=== PATIENT | female | born 1950 | race African-American/Black ===

== ENCOUNTER 2018-05-27 20:01 | Inpatient (IN) ==
[2018-05-27] MEDS ORDERED: CLINDAMYCIN INJ 600 MG in PREMIX 1 EACH IV STA (20:48)
[2018-05-27] MEDS ORDERED: SODIUM CHLORIDE 0.9% 500 ML IV STA (20:48)
[2018-05-27] MEDS ORDERED: methylPREDNISolone SOD SUC 125 MG/2 ML VIAL IV STA (20:48)
[2018-05-27] MEDS ORDERED: PIPERACILLIN/TAZOBACTAM 3,375 MG in SODIUM CHLORIDE 0.9% 100 ML IV STA (20:48)
[2018-05-27] MEDS ORDERED: ONDANSETRON 4 MG/2 ML VIAL IV STA (20:48)
[2018-05-27] MEDS ORDERED: ALBUTEROL NEB SOLN 5 MG/ML 20 ML/BOTTLE RESP TX SCH (21:00)
[2018-05-27 21:50] LABS: PT Patient Result 10.4 SECS
[2018-05-27 22:03] LABS: Lactic Acid 2.5 MMOL/L (0.4-2.0)
[2018-05-27 22:32] LABS: Basophils # 0.1 10*3/uL (0.0-0.2); Basophils % 0.3 % (0.0-0.8); Eosinophils % 0.1 % (0.00-10.9); Hematocrit 43.9 VOL% (35.7-47.0); Hemoglobin 13.3 GM/DL (12.0-16.0); Immature Granulocytes Absolute 0.17 #; Lymphocytes # 2.5 10*3/uL (1.4-4.0); Lymphocytes % 14.9 % (21.3-54.2); Mean Corpuscular HGB Conc 30.3 GM/DL (32-36); Mean Corpuscular Hemoglobin 27 PG (27-34); Mean Corpuscular Volume 87.5 FL (87-102); Mean Platelet Volume 11.6 FL (9.6-12.0); Monocytes # 1.3 10*3/uL (0.11-0.8); Monocytes % 7.4 % (1.7-12.7); NRBC # 0.06 10*3/uL; Neutrophils # 13.1 10*3/uL (1.4-7.4); Neutrophils % 76.3 % (38.7-73.9); Platelet Count 290 T/CUMM (130-400); Red Blood Count 5.02 MC/CUMM (3.8-5.5); Red Cell Distribution Width 16.3 % (9.3-17.3); White Blood Count 17.1 T/CUMM (4-12)
[2018-05-27 22:37] LABS: Albumin 2.5 G/DL (3.4-5.0); Bilirubin,Total 0.6 MG/DL (0.2-1.0); Calcium 9.3 MG/DL (8.5-10.1); Osmolality,Calculated 298.4 MOS/KG (273-304); Total Protein 8.7 G/DL (6.4-8.3)
[2018-05-27 23:15] LABS: Apearance,Urine CLEAR (Clear); Bilirubin,Urine Negative (Negative); Blood, Urine Negative (Negative); Glucose,Urine (UA) Negative (Negative); Ketones,Urine Negative (Negative); Nitrite,Urine Negative (Negative); Protein,Urine 30 MG/DL; RBC,Urine 3 /HPF (0-4); Urine Color Amber (Yellow); Urine Specific Gravity 1.027 (1.001-1.035); WBC,Urine 2 /HPF (0-6)
[2018-05-28 00:58] LABS: PT Patient Result 10.7 SECS; Partial Thromboplastin Time 21.7 SECS (0-40)
[2018-05-28] MEDS ORDERED: ONDANSETRON 4 MG/2 ML VIAL IV PRN (01:55)
[2018-05-28] MEDS ORDERED: PIPERACILLIN/TAZOBACTAM 3,375 MG VIAL IV ONE (02:57)
[2018-05-28] MEDS ORDERED: SODIUM CHLORIDE 0.9% 100 ML IV ONE (02:58)
[2018-05-28] MEDS: SODIUM CHLORIDE 0.45% 1,000 ML IV SCH ×2 (04:00→11:30)
[2018-05-28] MEDS: ALBUTEROL/IPRATROPIUM 3 ML NEB RESP TX SCH ×3 (08:05→19:50)
[2018-05-28 10:09] LABS: Albumin 1.9 G/DL (3.4-5.0); Bilirubin,Total 0.6 MG/DL (0.2-1.0); Calcium 8.4 MG/DL (8.5-10.1); Osmolality,Calculated 300.1 MOS/KG (273-304); Potassium 4.3 MMOL/L (3.5-5.1); Total Protein 7.4 G/DL (6.4-8.3)
[2018-05-28 10:15] LABS: Basophils % 0.2 % (0.0-0.8); Eosinophils % 0.1 % (0.00-10.9); Hematocrit 40.1 VOL% (35.7-47.0); Hemoglobin 11.8 GM/DL (12.0-16.0); Immature Granulocytes % 0.8 %; Immature Granulocytes Absolute 0.12 #; Lymphocytes # 2.2 10*3/uL (1.4-4.0); Lymphocytes % 14.8 % (21.3-54.2); Mean Corpuscular HGB Conc 29.4 GM/DL (32-36); Mean Corpuscular Hemoglobin 26 PG (27-34); Mean Corpuscular Volume 89.5 FL (87-102); Mean Platelet Volume 12.2 FL (9.6-12.0); Monocytes # 0.9 10*3/uL (0.11-0.8); Monocytes % 6.2 % (1.7-12.7); NRBC # 0.05 10*3/uL; Neutrophils # 11.4 10*3/uL (1.4-7.4); Neutrophils % 77.9 % (38.7-73.9); Platelet Count 182 T/CUMM (130-400); Red Blood Count 4.48 MC/CUMM (3.8-5.5); Red Cell Distribution Width 16.2 % (9.3-17.3); White Blood Count 14.6 T/CUMM (4-12)
[2018-05-28 11:17] LABS: Anisocytosis 1+; Macrocytosis 1+; Platelet Estimate Normal
[2018-05-28] MEDS: ENOXAPARIN 40 MG/0.4 ML SYRINGE SUBCUT SCH (11:30)
[2018-05-28] MEDS: PIPERACILLIN/TAZOBACTAM 3,375 MG in SODIUM CHLORIDE 0.9% 100 ML IV SCH ×2 (11:31→18:31)
[2018-05-28] MEDS ORDERED: MAGNESIUM HYDROXIDE SUSP 30 ML UDCUP PO ONE (12:13)
[2018-05-28] MEDS ORDERED: DEXTROSE 50% 25 GM/50 ML SYRINGE IV PRN (12:28)
[2018-05-28] MEDS ORDERED: GLUCAGON 1 MG VIAL IM PRN (12:28)
[2018-05-28] MEDS: ZINC SULFATE 220 MG CAPSULE PO SCH (12:48)
[2018-05-28] MEDS: methylPREDNISolone SOD SUC 40 MG/1 ML VIAL IV SCH ×2 (12:48→22:14)
[2018-05-28] MEDS: ASCORBIC ACID 500 MG TABLET PO SCH ×2 (12:48→22:12)
[2018-05-28] MEDS: METOCLOPRAMIDE 10 MG/10 ML UDCUP PO SCH ×2 (12:49→17:45)
[2018-05-28] MEDS: MULTIVITAMIN (BEROCCA) TABLET PO SCH (12:50)
[2018-05-28] MEDS: POLYETHYLENE GLYCOL POWDER 17 GM PACK PEG SCH (12:50)
[2018-05-28] MEDS: levETIRAcetam LIQUID 100 MG/ML 30 ML/BOTTLE PEG SCH ×3 (12:51→22:14)
[2018-05-28] MEDS: INSULIN REGULAR 100 UNIT/ML SUBCUT SCH (17:29)
[2018-05-28] MEDS: DONEPEZIL 10 MG TABLET PEG SCH (22:12)
[2018-05-28] MEDS: BRIMONIDINE/TIMOLOL OPH SOLN 5 ML BOTTLE BOTH EYES SCH (22:13)
[2018-05-28] MEDS: PHENYTOIN 100 MG/4 ML UDCUP PEG SCH (22:13)
[2018-05-28] MEDS: MEMANTINE 10 MG TABLET PER TUBE SCH (22:14)
[2018-05-28] MEDS: TRAVOPROST 0.004% OPH SOLN 2.5 ML BOTTLE BOTH EYES SCH (22:15)
[2018-05-29] MEDS: ALBUTEROL/IPRATROPIUM 3 ML NEB RESP TX SCH ×4 (00:01→20:21)
[2018-05-29] MEDS: METOCLOPRAMIDE 10 MG/10 ML UDCUP PO SCH ×4 (00:50→18:41)
[2018-05-29] MEDS: INSULIN REGULAR 100 UNIT/ML SUBCUT SCH ×4 (00:59→18:40)
[2018-05-29] MEDS: PIPERACILLIN/TAZOBACTAM 3,375 MG in SODIUM CHLORIDE 0.9% 100 ML IV SCH ×3 (04:04→21:33)
[2018-05-29] MEDS: methylPREDNISolone SOD SUC 40 MG/1 ML VIAL IV SCH (04:05)
[2018-05-29] MEDS: SODIUM CHLORIDE 0.45% 1,000 ML IV SCH ×4 (04:20→19:41)
[2018-05-29 06:24] LABS: Albumin 1.9 G/DL (3.4-5.0); Bilirubin,Total 0.7 MG/DL (0.2-1.0); Calcium 8.9 MG/DL (8.5-10.1); Osmolality,Calculated 303.1 MOS/KG (273-304); Potassium 3.6 MMOL/L (3.5-5.1); Total Protein 7.2 G/DL (6.4-8.3)
[2018-05-29 06:38] LABS: Basophils % 0.2 % (0.0-0.8); Hematocrit 37.4 VOL% (35.7-47.0); Immature Granulocytes % 0.9 %; Immature Granulocytes Absolute 0.13 #; Lymphocytes # 1.7 10*3/uL (1.4-4.0); Lymphocytes % 11.2 % (21.3-54.2); Mean Corpuscular HGB Conc 28.9 GM/DL (32-36); Mean Corpuscular Hemoglobin 27 PG (27-34); Mean Corpuscular Volume 91.9 FL (87-102); Mean Platelet Volume 12.4 FL (9.6-12.0); Monocytes # 0.4 10*3/uL (0.11-0.8); Monocytes % 2.8 % (1.7-12.7); NRBC # 0.07 10*3/uL; Neutrophils # 12.5 10*3/uL (1.4-7.4); Neutrophils % 84.9 % (38.7-73.9); Platelet Count 256 T/CUMM (130-400); Red Blood Count 4.07 MC/CUMM (3.8-5.5); Red Cell Distribution Width 15.9 % (9.3-17.3); White Blood Count 14.8 T/CUMM (4-12)
[2018-05-29 06:39] LABS: Hemoglobin 10.8 GM/DL (12.0-16.0)
[2018-05-29] MEDS: LACOSAMIDE PEG SCH ×2 (08:56→22:55)
[2018-05-29] MEDS: MEMANTINE 10 MG TABLET PER TUBE SCH ×2 (08:56→21:32)
[2018-05-29] MEDS: amLODIPine 5 MG TABLET PO SCH (08:56)
[2018-05-29] MEDS: ASCORBIC ACID 500 MG TABLET PO SCH ×2 (08:56→21:32)
[2018-05-29] MEDS: ZINC SULFATE 220 MG CAPSULE PO SCH (08:56)
[2018-05-29] MEDS: MULTIVITAMIN (BEROCCA) TABLET PO SCH (08:56)
[2018-05-29] MEDS: ASPIRIN 325 MG TABLET PEG SCH (08:56)
[2018-05-29] MEDS: BRIMONIDINE/TIMOLOL OPH SOLN 5 ML BOTTLE BOTH EYES SCH ×2 (08:57→21:32)
[2018-05-29] MEDS: levETIRAcetam LIQUID 100 MG/ML 30 ML/BOTTLE PEG SCH ×4 (08:57→21:34)
[2018-05-29] MEDS: PHENYTOIN 100 MG/4 ML UDCUP PEG SCH ×2 (08:57→21:33)
[2018-05-29] MEDS: ENOXAPARIN 40 MG/0.4 ML SYRINGE SUBCUT SCH (08:57)
[2018-05-29 09:00] LABS: Hypochromasia 1+; Microcytosis 1+; Platelet Estimate Normal; Polychromasia Slight
[2018-05-29] MEDS: DONEPEZIL 10 MG TABLET PEG SCH (21:32)
[2018-05-29] MEDS: TRAVOPROST 0.004% OPH SOLN 2.5 ML BOTTLE BOTH EYES SCH (21:32)
[2018-05-30] MEDS: METOCLOPRAMIDE 10 MG/10 ML UDCUP PO SCH ×4 (00:26→18:32)
[2018-05-30] MEDS: ALBUTEROL/IPRATROPIUM 3 ML NEB RESP TX SCH ×4 (00:27→19:20)
[2018-05-30] MEDS: SODIUM CHLORIDE 0.45% 1,000 ML IV SCH ×2 (03:02→14:18)
[2018-05-30] MEDS: PIPERACILLIN/TAZOBACTAM 3,375 MG in SODIUM CHLORIDE 0.9% 100 ML IV SCH ×3 (03:09→21:49)
[2018-05-30] MEDS: INSULIN REGULAR 100 UNIT/ML SUBCUT SCH ×5 (06:16→23:48)
[2018-05-30 07:08] LABS: Basophils % 0.5 % (0.0-0.8); Eosinophils # 0.1 10*3/uL (0.0-0.87); Eosinophils % 1.1 % (0.00-10.9); Hematocrit 36.5 VOL% (35.7-47.0); Hemoglobin 10.6 GM/DL (12.0-16.0); Immature Granulocytes % 3.2 %; Immature Granulocytes Absolute 0.25 #; Lymphocytes # 1.9 10*3/uL (1.4-4.0); Lymphocytes % 23.7 % (21.3-54.2); Mean Corpuscular Hemoglobin 26 PG (27-34); Mean Corpuscular Volume 89.2 FL (87-102); Mean Platelet Volume 11.7 FL (9.6-12.0); Monocytes # 0.5 10*3/uL (0.11-0.8); Monocytes % 6.5 % (1.7-12.7); NRBC # 0.09 10*3/uL; Neutrophils # 5.1 10*3/uL (1.4-7.4); Platelet Count 225 T/CUMM (130-400); Red Blood Count 4.09 MC/CUMM (3.8-5.5); White Blood Count 7.8 T/CUMM (4-12)
[2018-05-30 07:15] LABS: Albumin 1.9 G/DL (3.4-5.0); Bilirubin,Total 0.4 MG/DL (0.2-1.0); Calcium 8.3 MG/DL (8.5-10.1); Osmolality,Calculated 299.1 MOS/KG (273-304); Potassium 3.2 MMOL/L (3.5-5.1); Total Protein 6.8 G/DL (6.4-8.3)
[2018-05-30] MEDS: MULTIVITAMIN (BEROCCA) TABLET PO SCH (09:40)
[2018-05-30] MEDS: ZINC SULFATE 220 MG CAPSULE PO SCH (09:40)
[2018-05-30] MEDS: ASCORBIC ACID 500 MG TABLET PO SCH ×2 (09:41→21:50)
[2018-05-30] MEDS: methylPREDNISolone SOD SUC 40 MG/1 ML VIAL IV SCH (09:41)
[2018-05-30] MEDS: ENOXAPARIN 40 MG/0.4 ML SYRINGE SUBCUT SCH (09:41)
[2018-05-30] MEDS: MEMANTINE 10 MG TABLET PER TUBE SCH ×2 (09:41→21:50)
[2018-05-30] MEDS: amLODIPine 5 MG TABLET PO SCH (09:41)
[2018-05-30] MEDS: ASPIRIN 325 MG TABLET PEG SCH (09:41)
[2018-05-30] MEDS: levETIRAcetam LIQUID 100 MG/ML 30 ML/BOTTLE PEG SCH ×4 (09:42→21:51)
[2018-05-30] MEDS: BRIMONIDINE/TIMOLOL OPH SOLN 5 ML BOTTLE BOTH EYES SCH ×2 (09:42→21:50)
[2018-05-30] MEDS: LACOSAMIDE PEG SCH ×2 (09:42→21:51)
[2018-05-30] MEDS: PHENYTOIN 100 MG/4 ML UDCUP PEG SCH ×2 (09:42→21:49)
[2018-05-30] MEDS ORDERED: POTASSIUM PHOSPHATE 15 MMOL in SODIUM CHLORIDE 0.9% 100 ML IV ONE (15:56)
[2018-05-30] MEDS ORDERED: POTASSIUM CHLORIDE 20 MEQ/15 ML UDCUP PER TUBE ONE (15:58)
[2018-05-30] MEDS: POTASSIUM CHLORIDE INJ 10 MEQ in SODIUM CHLORIDE 0.45% 1,000 ML IV SCH (16:55)
[2018-05-30] MEDS: TRAVOPROST 0.004% OPH SOLN 2.5 ML BOTTLE BOTH EYES SCH (21:50)
[2018-05-30] MEDS: DONEPEZIL 10 MG TABLET PEG SCH (21:51)
[2018-05-31] MEDS: METOCLOPRAMIDE 10 MG/10 ML UDCUP PO SCH ×3 (00:32→13:44)
[2018-05-31] MEDS: ALBUTEROL/IPRATROPIUM 3 ML NEB RESP TX SCH ×2 (00:33→07:23)
[2018-05-31 05:08] LABS: Basophils # 0.1 10*3/uL (0.0-0.2); Basophils % 0.8 % (0.0-0.8); Eosinophils # 0.1 10*3/uL (0.0-0.87); Eosinophils % 1.4 % (0.00-10.9); Hematocrit 35.7 VOL% (35.7-47.0); Hemoglobin 10.7 GM/DL (12.0-16.0); Immature Granulocytes % 4.7 %; Immature Granulocytes Absolute 0.37 #; Lymphocytes # 1.9 10*3/uL (1.4-4.0); Lymphocytes % 23.7 % (21.3-54.2); Mean Corpuscular Hemoglobin 27 PG (27-34); Mean Corpuscular Volume 88.6 FL (87-102); Mean Platelet Volume 11.4 FL (9.6-12.0); Monocytes # 0.4 10*3/uL (0.11-0.8); Monocytes % 5.4 % (1.7-12.7); Platelet Count 233 T/CUMM (130-400); Red Blood Count 4.03 MC/CUMM (3.8-5.5); Red Cell Distribution Width 15.9 % (9.3-17.3); White Blood Count 7.8 T/CUMM (4-12)
[2018-05-31 05:36] LABS: Albumin 1.9 G/DL (3.4-5.0); Bilirubin,Total 0.4 MG/DL (0.2-1.0); Calcium 8.7 MG/DL (8.5-10.1); Osmolality,Calculated 288.7 MOS/KG (273-304); Potassium 3.9 MMOL/L (3.5-5.1); Total Protein 6.5 G/DL (6.4-8.3)
[2018-05-31] MEDS: POTASSIUM CHLORIDE INJ 10 MEQ in SODIUM CHLORIDE 0.45% 1,000 ML IV SCH (06:16)
[2018-05-31] MEDS: INSULIN REGULAR 100 UNIT/ML SUBCUT SCH ×2 (06:17→11:02)
[2018-05-31] MEDS: PIPERACILLIN/TAZOBACTAM 3,375 MG in SODIUM CHLORIDE 0.9% 100 ML IV SCH ×2 (06:36→14:25)
[2018-05-31] MEDS: BRIMONIDINE/TIMOLOL OPH SOLN 5 ML BOTTLE BOTH EYES SCH (10:22)
[2018-05-31] MEDS: ASPIRIN 325 MG TABLET PEG SCH (10:22)
[2018-05-31] MEDS: MULTIVITAMIN (BEROCCA) TABLET PO SCH (10:22)
[2018-05-31] MEDS: PHENYTOIN 100 MG/4 ML UDCUP PEG SCH (10:23)
[2018-05-31] MEDS: LACOSAMIDE PEG SCH (10:23)
[2018-05-31] MEDS: ENOXAPARIN 40 MG/0.4 ML SYRINGE SUBCUT SCH (10:23)
[2018-05-31] MEDS: amLODIPine 5 MG TABLET PO SCH (10:24)
[2018-05-31] MEDS: MEMANTINE 10 MG TABLET PER TUBE SCH (10:24)
[2018-05-31] MEDS: methylPREDNISolone SOD SUC 40 MG/1 ML VIAL IV SCH (10:24)
[2018-05-31] MEDS: ASCORBIC ACID 500 MG TABLET PO SCH (10:24)
[2018-05-31] MEDS: ZINC SULFATE 220 MG CAPSULE PO SCH (10:25)
[2018-05-31] MEDS: levETIRAcetam LIQUID 100 MG/ML 30 ML/BOTTLE PEG SCH ×3 (10:28→17:17)
[2018-05-31] MEDS: POLYETHYLENE GLYCOL POWDER 17 GM PACK PEG SCH (13:21)
[2018-05-31 17:22] VITALS: BP 107/76
== END 2018-05-31 17:17 | DRG 177 ==
LOC: EDBD → EDUNIT# → N.ED 20:01 → N.EDINP 05-28 01:48 → SUATTDRO 05-28 01:48 → N.EDINP 05-28 07:23 → N.3E 05-28 07:45
PROVIDERS: ADMIT Internal Medicine; ATTEND Internal Medicine

== ENCOUNTER 2019-05-28 02:07 | Inpatient (IN) ==
[2019-05-28] MEDS ORDERED: IBUPROFEN 800 MG TABLET PO STA (02:43)
[2019-05-28] MEDS ORDERED: SODIUM CHLORIDE 0.9% 1,000 ML IV STA ×2 (02:43→04:16)
[2019-05-28 03:08] LABS: Alanine Aminotransferase 43 U/L (13-56); Albumin 2.5 G/DL (3.4-5.0); Alkaline Phosphatase 270 U/L (45-117); Aspartate Amino Transferase 52 U/L (0-37); Bilirubin,Total < 0.39 MG/DL (0.2-1.0); Blood Urea Nitrogen 35 MG/DL (7-18); Calcium 8.7 MG/DL (8.5-10.1); Estimated Glom Filtration Rate 109 ML/MIN; Glucose 157 MG/DL (74-106); Osmolality,Calculated 300.6 MOS/KG (273-304); Total Protein 7.7 G/DL (6.4-8.3)
[2019-05-28 03:17] LABS: Apearance,Urine Slightly Hazy (Clear); Bilirubin,Urine Negative (Negative); Blood, Urine Negative (Negative); Glucose,Urine (UA) Negative (Negative); Ketones,Urine Negative (Negative); Mucus,Urine Occasional /LPF (Occasional); Nitrite,Urine Negative (Negative); Protein,Urine 100 MG/DL; RBC,Urine 6 /HPF (0-4); Urine Color Amber (Yellow); Urine Urobilinogen < 2.0 EU/DL (0.2-1.0); WBC,Urine 6 /HPF (0-6)
[2019-05-28 03:41] LABS: Basophils % 0.4 % (0.0-0.8); Eosinophils % 0.1 % (0.00-10.9); Hematocrit 49.5 VOL% (35.7-47.0); Hemoglobin 15.1 GM/DL (12.0-16.0); Immature Granulocytes % 1.1 %; Lymphocytes % 21.3 % (21.3-54.2); Mean Corpuscular HGB Conc 30.5 GM/DL (32-36); Mean Corpuscular Volume 93.6 FL (87-102); Mean Platelet Volume 11.9 FL (9.6-12.0); Monocytes % 7.2 % (1.7-12.7); NRBC # 0.07 10*3/uL; Neutrophils % 69.9 % (38.7-73.9); Platelet Count 253 T/CUMM (130-400); Red Blood Count 5.29 MC/CUMM (3.8-5.5); Red Cell Distribution Width 14.8 % (9.3-17.3); White Blood Count 9.4 T/CUMM (4-12)
[2019-05-28] MEDS ORDERED: PIPERACILLIN/TAZOBACTAM 3,375 MG in SODIUM CHLORIDE 0.9% 100 ML IV STA (04:16)
[2019-05-28] MEDS ORDERED: LACTULOSE 20 GM/30 ML UDCUP PO PRN (08:32)
[2019-05-28 09:27] LABS: Risk Ratio 3.78; Thyroid Stimulating Hormone 3.22 uIU/ml (0.358-3.74); VLDL CHOLESTEROL 29.6 MG/DL
[2019-05-28] MEDS: SOTALOL 80 MG TABLET PEG SCH ×2 (10:09→22:16)
[2019-05-28] MEDS: ASCORBIC ACID 500 MG TABLET PEG SCH ×2 (10:09→22:16)
[2019-05-28] MEDS: ENOXAPARIN 40 MG/0.4 ML SYRINGE SUBCUT SCH (10:09)
[2019-05-28] MEDS: PIPERACILLIN/TAZOBACTAM 3,375 MG in SODIUM CHLORIDE 0.9% 100 ML IV SCH ×2 (10:10→17:01)
[2019-05-28] MEDS: SODIUM CHLORIDE 0.9% 1,000 ML IV SCH (10:11)
[2019-05-28] MEDS: MEMANTINE 10 MG TABLET PER TUBE SCH ×2 (10:11→22:16)
[2019-05-28] MEDS: MOISTURIZING CREAM (EUCERIN) 106 GM JAR TOP SCH (10:20)
[2019-05-28] MEDS: BRIMONIDINE/TIMOLOL OPH SOLN 5 ML BOTTLE BOTH EYES SCH ×2 (10:20→18:08)
[2019-05-28] MEDS: levETIRAcetam LIQUID 100 MG/ML 30 ML/BOTTLE PEG SCH ×2 (14:54→22:15)
[2019-05-28] MEDS: METOCLOPRAMIDE 10 MG/10 ML UDCUP PEG SCH ×3 (14:54→22:14)
[2019-05-28] MEDS ORDERED: DONEPEZIL 10 MG TABLET PEG SCH (20:00)
[2019-05-28] MEDS ORDERED: TRAVOPROST 0.004% OPH SOLN 2.5 ML BOTTLE BOTH EYES SCH (20:00)
[2019-05-28] MEDS: PHENYTOIN 100 MG/4 ML UDCUP PER TUBE SCH (22:14)
[2019-05-29] MEDS: SODIUM CHLORIDE 0.9% 1,000 ML IV SCH (00:42)
[2019-05-29] MEDS: PIPERACILLIN/TAZOBACTAM 3,375 MG in SODIUM CHLORIDE 0.9% 100 ML IV SCH ×2 (03:16→11:45)
[2019-05-29 05:09] LABS: Basophils % 0.3 % (0.0-0.8); Eosinophils % 0.4 % (0.00-10.9); Hematocrit 39.8 VOL% (35.7-47.0); Immature Granulocytes % 0.4 %; Immature Granulocytes Absolute 0.04 #; Lymphocytes # 1.8 10*3/uL (1.4-4.0); Lymphocytes % 18.5 % (21.3-54.2); Mean Corpuscular HGB Conc 29.4 GM/DL (32-36); Mean Corpuscular Volume 96.6 FL (87-102); Mean Platelet Volume 11.9 FL (9.6-12.0); Monocytes % 8.9 % (1.7-12.7); NRBC # 0.02 10*3/uL; Neutrophils % 71.5 % (38.7-73.9); Platelet Count 165 T/CUMM (130-400); Red Blood Count 4.12 MC/CUMM (3.8-5.5); Red Cell Distribution Width 14.6 % (9.3-17.3); White Blood Count 9.8 T/CUMM (4-12)
[2019-05-29 05:30] LABS: Calcium 8.1 MG/DL (8.5-10.1); Osmolality,Calculated 292.7 MOS/KG (273-304)
[2019-05-29 05:41] LABS: Hemoglobin 11.9 GM/DL (12.0-16.0)
[2019-05-29] MEDS ORDERED: SODIUM CHLOR 0.45% KCL 20 MEQ 20 MEQ/1,000 ML BAG IV SCH (07:00)
[2019-05-29] MEDS ORDERED: MULTIVITAMIN LIQUID (CENTRUM) 60 ML BOTTLE PEG SCH (08:00)
[2019-05-29] MEDS ORDERED: ASPIRIN 325 MG TABLET PEG SCH (08:00)
[2019-05-29] MEDS ORDERED: amLODIPine 5 MG TABLET PEG SCH (08:00)
[2019-05-29] MEDS ORDERED: [UNRECOGNIZED DRUG - OTHER] PO SCH (08:00)
[2019-05-29] MEDS: levETIRAcetam LIQUID 100 MG/ML 30 ML/BOTTLE PEG SCH (08:25)
[2019-05-29] MEDS: METOCLOPRAMIDE 10 MG/10 ML UDCUP PEG SCH ×2 (08:26→12:00)
[2019-05-29] MEDS: ASCORBIC ACID 500 MG TABLET PEG SCH ×2 (08:26→09:21)
[2019-05-29] MEDS: SOTALOL 80 MG TABLET PEG SCH (08:26)
[2019-05-29] MEDS: MEMANTINE 10 MG TABLET PER TUBE SCH (08:26)
[2019-05-29] MEDS: ENOXAPARIN 40 MG/0.4 ML SYRINGE SUBCUT SCH (08:27)
[2019-05-29] MEDS: PHENYTOIN 100 MG/4 ML UDCUP PER TUBE SCH (08:27)
[2019-05-29] MEDS: MOISTURIZING CREAM (EUCERIN) 106 GM JAR TOP SCH ×2 (08:28→09:21)
[2019-05-29] MEDS: BRIMONIDINE/TIMOLOL OPH SOLN 5 ML BOTTLE BOTH EYES SCH ×2 (08:28→09:20)
[2019-05-29] MEDS: POTASSIUM CHLORIDE RIDER 10 MEQ in PREMIX 1 EACH IV PRN ×2 (08:30→11:46)
[2019-05-29] MEDS: LACOSAMIDE 10 MG PEG SCH ×2 (09:21→09:22)
[2019-05-29 14:10] VITALS: BP 150/96
[2019-05-29] MEDS ORDERED: AMINO ACIDS PROTEIN HYDROLYS PEG SCH (20:00)
[2019-05-30] MEDS ORDERED: POLYETHYLENE GLYCOL POWDER 17 GM PACK PEG SCH (08:00)
== END 2019-05-29 15:45 | disposition home or self-care (01) | DRG 864 ==
LOC: EDUNIT# → N.ED 02:07 → N.EDINP 08:32 → N.5E 09:15
PROVIDERS: ADMIT Internal Medicine; ATTEND Internal Medicine

== ENCOUNTER 2019-06-07 19:51 | Inpatient (IN) ==
[2019-06-07] MEDS ORDERED: NOREPINEPHRINE 4 MG/4 ML VIAL IV ONE (20:13)
[2019-06-07] MEDS: NOREPINEPHRINE 8 MG in SODIUM CHLORIDE 0.9% 242 ML IV PRN (20:20)
[2019-06-07] MEDS ORDERED: ONDANSETRON 4 MG/2 ML VIAL IV STA (20:27)
[2019-06-07] MEDS ORDERED: ACETAMINOPHEN 650 MG SUPP RECTAL STA (20:27)
[2019-06-07] MEDS ORDERED: CLINDAMYCIN INJ 600 MG in PREMIX 1 EACH IV STA (20:27)
[2019-06-07] MEDS ORDERED: SODIUM CHLORIDE 0.9% 1,000 ML IV STA (20:27)
[2019-06-07] MEDS ORDERED: PIPERACILLIN/TAZOBACTAM 3,375 MG in SODIUM CHLORIDE 0.9% 100 ML IV STA (20:27)
[2019-06-07] MEDS ORDERED: PANTOPRAZOLE 40 MG VIAL IV STA (20:27)
[2019-06-07 20:45] LABS: INR 1.5; PT Patient Result 15.8 SECS (9.6-12.2)
[2019-06-07] MEDS ORDERED: ETOMIDATE 20 MG/10 ML VIAL IV ONE (20:55)
[2019-06-07 20:56] LABS: Albumin 2.5 G/DL (3.4-5.0); Bilirubin,Total 0.6 MG/DL (0.2-1.0); Calcium 9.3 MG/DL (8.5-10.1); Osmolality,Calculated 312.3 MOS/KG (273-304); Total Protein 8.1 G/DL (6.4-8.3)
[2019-06-07] MEDS ORDERED: VECURONIUM 10 MG VIAL IV ONE ×2 (20:56→22:47)
[2019-06-07] MEDS ORDERED: SODIUM CHLORIDE 0.9% 2,050 ML IV ONE (21:05)
[2019-06-07 21:10] LABS: Basophils # 0.1 10*3/uL (0.0-0.2); Basophils % 0.5 % (0.0-0.8); Eosinophils % 0.2 % (0.00-10.9); Hematocrit 48.1 VOL% (35.7-47.0); Immature Granulocytes % 3.1 %; Immature Granulocytes Absolute 0.47 #; Lymphocytes # 1.8 10*3/uL (1.4-4.0); Lymphocytes % 11.7 % (21.3-54.2); Mean Corpuscular HGB Conc 29.7 GM/DL (32-36); Mean Corpuscular Volume 97.2 FL (87-102); Mean Platelet Volume 12.5 FL (9.6-12.0); Monocytes % 9.1 % (1.7-12.7); NRBC # 0.62 10*3/uL; Neutrophils % 75.4 % (38.7-73.9); Platelet Count 157 T/CUMM (130-400); Red Blood Count 4.95 MC/CUMM (3.8-5.5); Red Cell Distribution Width 16.2 % (9.3-17.3); White Blood Count 15.3 T/CUMM (4-12)
[2019-06-07 21:12] LABS: Hemoglobin 14.3 GM/DL (12.0-16.0)
[2019-06-07 21:29] LABS: Anisocytosis 1+; Band Neutrophils 5 % (0-10); Lymphocytes 11 % (20-55); Macrocytosis 1+; Metamyelocytes 3 %; Microcytosis Slight; Nucleated Red Blood Cells 3 (0-5); Polychromasia Slight; Segmented Neutrophils 74 % (50-85); Total Cells Counted 100
[2019-06-07 21:30] LABS: Platelet Estimate Normal
[2019-06-07] MEDS: VANCOMYCIN INJ 1,000 MG in SODIUM CHLORIDE 0.9% 250 ML IV SCH (22:00)
[2019-06-07 22:07] LABS: Apearance,Urine CLOUDY (Clear); Bacteria,Urine Occasional /HPF (Few); Bilirubin,Urine Negative (Negative); Blood, Urine Negative (Negative); Glucose,Urine (UA) 50 mg/dL (Negative); Hyaline Casts,Urine 51 /LPF (0-3); Ketones,Urine Negative (Negative); Nitrite,Urine Negative (Negative); Protein,Urine 100 MG/DL; RBC,Urine 10 /HPF (0-4); Squamous Epithelial Cell,Urine Occasional /HPF (0-10); Urine Color Amber (Yellow); Urine Specific Gravity 1.025 (1.001-1.035); Urine Urobilinogen < 2.0 EU/DL (0.2-1.0); WBC,Urine 5 /HPF (0-6)
[2019-06-07 22:44] LABS: ABG HCO3 18.1 MMOL/L (20-26); ABG Oxygen Saturation 99.4 % (95-100); ABG PCO2 35.4 MM HG (35-48); ABG PH 7.327 (7.35-7.45); ABG PO2 345.7 MM HG (80-95); ABG TCO2 19.2 MMOL/L (23-27)
[2019-06-07] MEDS ORDERED: VECURONIUM 10 MG VIAL IV STA ×2 (22:57)
[2019-06-07] MEDS ORDERED: ETOMIDATE 20 MG/10 ML VIAL IV STA (22:58)
[2019-06-07] MEDS ORDERED: ONDANSETRON 4 MG/2 ML VIAL IV PRN (23:31)
[2019-06-07] MEDS ORDERED: ALBUTEROL 2.5 MG/3 ML NEB RESP TX PRN (23:31)
[2019-06-08] MEDS: SODIUM CHLORIDE 0.9% 1,000 ML IV SCH ×3 (00:44→21:02)
[2019-06-08] MEDS: ENOXAPARIN 40 MG/0.4 ML SYRINGE SUBCUT SCH (00:44)
[2019-06-08] MEDS: NOREPINEPHRINE 8 MG in SODIUM CHLORIDE 0.9% 242 ML IV PRN ×4 (02:38→22:39)
[2019-06-08 05:12] LABS: Basophils # 0.1 10*3/uL (0.0-0.2); Basophils % 0.4 % (0.0-0.8); Hematocrit 44.4 VOL% (35.7-47.0); Immature Granulocytes % 2.1 %; Immature Granulocytes Absolute 0.34 #; Lymphocytes # 3.4 10*3/uL (1.4-4.0); Lymphocytes % 21.1 % (21.3-54.2); Mean Corpuscular HGB Conc 29.7 GM/DL (32-36); Mean Corpuscular Volume 98.2 FL (87-102); Mean Platelet Volume 11.9 FL (9.6-12.0); Monocytes % 8.9 % (1.7-12.7); Neutrophils % 67.5 % (38.7-73.9); Red Blood Count 4.52 MC/CUMM (3.8-5.5); Red Cell Distribution Width 16.3 % (9.3-17.3); White Blood Count 16.1 T/CUMM (4-12)
[2019-06-08 05:19] LABS: Bilirubin,Total 1.7 MG/DL (0.2-1.0); Osmolality,Calculated 322.2 MOS/KG (273-304); Total Protein 6.5 G/DL (6.4-8.3)
[2019-06-08] MEDS: PIPERACILLIN/TAZOBACTAM 3,375 MG in SODIUM CHLORIDE 0.9% 100 ML IV SCH ×3 (05:24→21:51)
[2019-06-08 05:26] LABS: Hemoglobin 13.2 GM/DL (12.0-16.0); Platelet Count 118 T/CUMM (130-400)
[2019-06-08 07:27] LABS: ABG Base Excess -11.5 MMOL/L (-2.5-2.5); ABG HCO3 15.6 MMOL/L (20-26); ABG Oxygen Saturation 99.4 % (95-100); ABG PCO2 26.2 MM HG (35-48); ABG PH 7.316 (7.35-7.45); ABG TCO2 11.8 MMOL/L (23-27); Allen Test Positive; Pt O2 Delivery Device Ventilator
[2019-06-08] MEDS: levETIRAcetam LIQUID 100 MG/ML 30 ML/BOTTLE PEG SCH ×3 (08:28→21:51)
[2019-06-08] MEDS: PHENYTOIN 100 MG/4 ML UDCUP PER TUBE SCH ×2 (08:28→21:51)
[2019-06-08] MEDS: LACOSAMIDE 50 MG TABLET PEG SCH ×2 (08:28→21:51)
[2019-06-08] MEDS ORDERED: POTASSIUM CHLORIDE 20 MEQ/15 ML UDCUP PER TUBE ONE (09:29)
[2019-06-08] MEDS ORDERED: VANCOMYCIN INJ 1,000 MG in SODIUM CHLORIDE 0.9% 250 ML IV SCH (10:00)
[2019-06-08] MEDS: BRIMONIDINE/TIMOLOL OPH SOLN 5 ML BOTTLE BOTH EYES SCH ×2 (12:27→21:50)
[2019-06-08] MEDS: ASCORBIC ACID 500 MG TABLET PEG SCH ×2 (12:27→21:51)
[2019-06-08] MEDS: MOISTURIZING CREAM (EUCERIN) 106 GM JAR TOP SCH (12:27)
[2019-06-08] MEDS: METOCLOPRAMIDE 10 MG/10 ML UDCUP PEG SCH ×3 (12:27→21:51)
[2019-06-08] MEDS ORDERED: AMINO ACIDS PROTEIN HYDROLYS PEG SCH (20:00)
[2019-06-08] MEDS ORDERED: PANTOPRAZOLE 40 MG VIAL IV ONE (20:31)
[2019-06-08] MEDS: PANTOPRAZOLE 40 MG VIAL IV SCH (21:50)
[2019-06-08] MEDS: MEMANTINE 10 MG TABLET PER TUBE SCH (21:51)
[2019-06-08] MEDS: DONEPEZIL 10 MG TABLET PEG SCH (21:51)
[2019-06-08] MEDS: TRAVOPROST 0.004% OPH SOLN 2.5 ML BOTTLE BOTH EYES SCH (21:51)
[2019-06-08] MEDS: VANCOMYCIN INJ 1,000 MG in SODIUM CHLORIDE 0.9% 250 ML IV SCH (21:52)
[2019-06-09] MEDS: ENOXAPARIN 40 MG/0.4 ML SYRINGE SUBCUT SCH (00:18)
[2019-06-09 03:38] LABS: ABG Base Excess -9.5 MMOL/L (-2.5-2.5); ABG HCO3 16.9 MMOL/L (20-26); ABG Oxygen Saturation 98.5 % (95-100); ABG PCO2 31.1 MM HG (35-48); ABG PH 7.313 (7.35-7.45); ABG TCO2 14.3 MMOL/L (23-27); Allen Test Positive; Pt O2 Delivery Device Ventilator
[2019-06-09 03:57] LABS: Basophils % 0.2 % (0.0-0.8); Eosinophils % 0.1 % (0.00-10.9); Hematocrit 36.2 VOL% (35.7-47.0); Hemoglobin 10.8 GM/DL (12.0-16.0); Immature Granulocytes % 0.6 %; Immature Granulocytes Absolute 0.09 #; Lymphocytes # 1.4 10*3/uL (1.4-4.0); Lymphocytes % 8.8 % (21.3-54.2); Mean Corpuscular HGB Conc 29.8 GM/DL (32-36); Mean Corpuscular Volume 98.4 FL (87-102); Mean Platelet Volume 12.3 FL (9.6-12.0); Monocytes % 5.4 % (1.7-12.7); Neutrophils % 84.9 % (38.7-73.9); Platelet Count 106 T/CUMM (130-400); Red Blood Count 3.68 MC/CUMM (3.8-5.5); Red Cell Distribution Width 16.8 % (9.3-17.3); White Blood Count 15.9 T/CUMM (4-12)
[2019-06-09 04:21] LABS: Albumin 1.7 G/DL (3.4-5.0); Bilirubin,Total 0.7 MG/DL (0.2-1.0); Calcium 6.9 MG/DL (8.5-10.1); Osmolality,Calculated 321.3 MOS/KG (273-304); Total Protein 5.9 G/DL (6.4-8.3)
[2019-06-09] MEDS ORDERED: GLUCAGON 1 MG VIAL IM PRN (04:33)
[2019-06-09] MEDS ORDERED: MAGNESIUM SULF RIDER 4 GM in PREMIX 1 EACH IV PRN (05:04)
[2019-06-09] MEDS ORDERED: POTASSIUM CHLORIDE RIDER 200 ML IV ONE ×2 (05:13→20:26)
[2019-06-09] MEDS: PIPERACILLIN/TAZOBACTAM 3,375 MG in SODIUM CHLORIDE 0.9% 100 ML IV SCH ×3 (05:35→20:45)
[2019-06-09] MEDS: POTASSIUM CHLORIDE RIDER 20 MEQ in PREMIX 1 EACH IV PRN ×4 (05:35→22:04)
[2019-06-09] MEDS: MAGNESIUM SULF RIDER 2 GM in PREMIX 1 EACH IV PRN (05:35)
[2019-06-09] MEDS: INSULIN REGULAR 100 UNIT/ML SUBCUT SCH ×3 (05:43→18:37)
[2019-06-09] MEDS ORDERED: [UNRECOGNIZED DRUG - OTHER] PO SCH (08:00)
[2019-06-09] MEDS: SODIUM CHLORIDE 0.9% 1,000 ML IV SCH (08:23)
[2019-06-09] MEDS: SODIUM BICARB INJ 50 MEQ in DEXTROSE 5% 1,000 ML IV SCH ×2 (08:44→16:20)
[2019-06-09] MEDS: ASPIRIN 325 MG TABLET PEG SCH (09:15)
[2019-06-09] MEDS: MEMANTINE 10 MG TABLET PER TUBE SCH ×2 (09:15→20:45)
[2019-06-09] MEDS: PHENYTOIN 100 MG/4 ML UDCUP PER TUBE SCH ×2 (09:15→20:45)
[2019-06-09] MEDS: METOCLOPRAMIDE 10 MG/10 ML UDCUP PEG SCH ×4 (09:15→20:45)
[2019-06-09] MEDS: LACOSAMIDE 50 MG TABLET PEG SCH ×2 (09:15→20:45)
[2019-06-09] MEDS: levETIRAcetam LIQUID 100 MG/ML 30 ML/BOTTLE PEG SCH ×3 (09:16→20:45)
[2019-06-09] MEDS: MULTIVITAMIN LIQUID (CENTRUM) 60 ML BOTTLE PEG SCH (09:16)
[2019-06-09] MEDS: NOREPINEPHRINE 8 MG in SODIUM CHLORIDE 0.9% 242 ML IV PRN (10:35)
[2019-06-09] MEDS: BRIMONIDINE/TIMOLOL OPH SOLN 5 ML BOTTLE BOTH EYES SCH ×2 (10:36→20:45)
[2019-06-09] MEDS: MOISTURIZING CREAM (EUCERIN) 106 GM JAR TOP SCH (10:36)
[2019-06-09] MEDS: ASCORBIC ACID 500 MG TABLET PEG SCH ×2 (10:38→20:45)
[2019-06-09] MEDS ORDERED: DEXTROSE 10% 250 ML BAG IV PRN (14:20)
[2019-06-09 14:22] LABS: Calcium 7.3 MG/DL (8.5-10.1); Osmolality,Calculated 308.3 MOS/KG (273-304)
[2019-06-09] MEDS ORDERED: POTASSIUM CHLORIDE RIDER 100 ML IV ONE (20:26)
[2019-06-09] MEDS: POTASSIUM CHLORIDE RIDER 10 MEQ in PREMIX 1 EACH IV PRN (20:30)
[2019-06-09] MEDS: DONEPEZIL 10 MG TABLET PEG SCH (20:45)
[2019-06-09] MEDS: TRAVOPROST 0.004% OPH SOLN 2.5 ML BOTTLE BOTH EYES SCH (20:45)
[2019-06-09] MEDS ORDERED: VANCOMYCIN INJ 1,000 MG in SODIUM CHLORIDE 0.9% 250 ML IV SCH (21:00)
[2019-06-09] MEDS: PANTOPRAZOLE 40 MG VIAL IV SCH (21:03)
[2019-06-09] MEDS: VANCOMYCIN INJ 1,000 MG in SODIUM CHLORIDE 0.9% 250 ML IV SCH (21:10)
[2019-06-10] MEDS: INSULIN REGULAR 100 UNIT/ML SUBCUT SCH ×4 (00:06→18:32)
[2019-06-10] MEDS: ENOXAPARIN 40 MG/0.4 ML SYRINGE SUBCUT SCH (00:35)
[2019-06-10 03:01] LABS: ABG Base Excess -1.9 MMOL/L (-2.5-2.5); ABG Oxygen Saturation 98.7 % (95-100); ABG PCO2 34.4 MM HG (35-48); ABG PH 7.424 (7.35-7.45); ABG PO2 139.9 MM HG (80-95); ABG TCO2 23.1 MMOL/L (23-27); Allen Test Positive; Pt O2 Delivery Device Ventilator
[2019-06-10] MEDS: SODIUM BICARB INJ 50 MEQ in DEXTROSE 5% 1,000 ML IV SCH ×4 (03:30→18:32)
[2019-06-10 04:04] LABS: Basophils % 0.2 % (0.0-0.8); Eosinophils # 0.1 10*3/uL (0.0-0.87); Eosinophils % 0.8 % (0.00-10.9); Hemoglobin 9.6 GM/DL (12.0-16.0); Immature Granulocytes % 1.5 %; Immature Granulocytes Absolute 0.18 #; Lymphocytes # 1.7 10*3/uL (1.4-4.0); Lymphocytes % 13.9 % (21.3-54.2); Mean Corpuscular Volume 96.7 FL (87-102); Mean Platelet Volume 12.8 FL (9.6-12.0); Monocytes % 3.8 % (1.7-12.7); NRBC # 0.09 10*3/uL; Neutrophils % 79.8 % (38.7-73.9); Platelet Count 95 T/CUMM (130-400); Red Blood Count 3.31 MC/CUMM (3.8-5.5); Red Cell Distribution Width 17.2 % (9.3-17.3); White Blood Count 12.3 T/CUMM (4-12)
[2019-06-10 04:18] LABS: Calcium 7.9 MG/DL (8.5-10.1); Osmolality,Calculated 296.4 MOS/KG (273-304)
[2019-06-10] MEDS: POTASSIUM CHLORIDE RIDER 20 MEQ in PREMIX 1 EACH IV PRN (05:15)
[2019-06-10] MEDS: MAGNESIUM SULF RIDER 2 GM in PREMIX 1 EACH IV PRN (05:20)
[2019-06-10] MEDS: PIPERACILLIN/TAZOBACTAM 3,375 MG in SODIUM CHLORIDE 0.9% 100 ML IV SCH ×3 (05:20→21:02)
[2019-06-10] MEDS ORDERED: POLYETHYLENE GLYCOL POWDER 17 GM PACK PEG SCH (08:00)
[2019-06-10] MEDS: ASPIRIN 325 MG TABLET PEG SCH (10:22)
[2019-06-10] MEDS: ASCORBIC ACID 500 MG TABLET PEG SCH ×2 (10:22→20:56)
[2019-06-10] MEDS: MEMANTINE 10 MG TABLET PER TUBE SCH ×2 (10:22→20:56)
[2019-06-10] MEDS: LACOSAMIDE 50 MG TABLET PEG SCH ×2 (10:22→20:56)
[2019-06-10] MEDS: PHENYTOIN 100 MG/4 ML UDCUP PER TUBE SCH ×2 (10:23→20:55)
[2019-06-10] MEDS: levETIRAcetam LIQUID 100 MG/ML 30 ML/BOTTLE PEG SCH ×3 (10:23→20:54)
[2019-06-10] MEDS: METOCLOPRAMIDE 10 MG/10 ML UDCUP PEG SCH ×4 (10:23→20:55)
[2019-06-10] MEDS: MULTIVITAMIN LIQUID (CENTRUM) 60 ML BOTTLE PEG SCH (10:24)
[2019-06-10] MEDS: BRIMONIDINE/TIMOLOL OPH SOLN 5 ML BOTTLE BOTH EYES SCH ×2 (11:42→18:21)
[2019-06-10] MEDS: MOISTURIZING CREAM (EUCERIN) 106 GM JAR TOP SCH (11:42)
[2019-06-10] MEDS: DOCUSATE/SENNA 50-8.6 MG TABLET PO SCH ×2 (12:55→21:05)
[2019-06-10] MEDS: VANCOMYCIN INJ 1,000 MG in SODIUM CHLORIDE 0.9% 250 ML IV SCH (16:45)
[2019-06-10] MEDS: DONEPEZIL 10 MG TABLET PEG SCH (20:56)
[2019-06-10] MEDS: TRAVOPROST 0.004% OPH SOLN 2.5 ML BOTTLE BOTH EYES SCH (20:56)
[2019-06-10] MEDS: PANTOPRAZOLE 40 MG VIAL IV SCH (21:02)
[2019-06-11] MEDS: INSULIN REGULAR 100 UNIT/ML SUBCUT SCH ×4 (00:07→18:04)
[2019-06-11] MEDS: SODIUM BICARB INJ 50 MEQ in DEXTROSE 5% 1,000 ML IV SCH ×3 (01:30→20:47)
[2019-06-11 04:42] LABS: ABG Base Excess 5.6 MMOL/L (-2.5-2.5); ABG HCO3 29.5 MMOL/L (20-26); ABG Oxygen Saturation 99.2 % (95-100); ABG PH 7.502 (7.35-7.45); ABG TCO2 26.5 MMOL/L (23-27); Allen Test Positive; Pt O2 Delivery Device Ventilator
[2019-06-11 05:36] LABS: Basophils % 0.3 % (0.0-0.8); Eosinophils # 0.1 10*3/uL (0.0-0.87); Eosinophils % 1.1 % (0.00-10.9); Hematocrit 29.5 VOL% (35.7-47.0); Hemoglobin 9.1 GM/DL (12.0-16.0); Immature Granulocytes % 1.1 %; Immature Granulocytes Absolute 0.13 #; Lymphocytes # 1.1 10*3/uL (1.4-4.0); Mean Corpuscular HGB Conc 30.8 GM/DL (32-36); Mean Corpuscular Volume 95.5 FL (87-102); Mean Platelet Volume 12.5 FL (9.6-12.0); Monocytes % 5.5 % (1.7-12.7); NRBC # 0.12 10*3/uL; Platelet Count 119 T/CUMM (130-400); Red Blood Count 3.09 MC/CUMM (3.8-5.5); Red Cell Distribution Width 17.2 % (9.3-17.3); White Blood Count 11.4 T/CUMM (4-12)
[2019-06-11 05:50] LABS: Calcium 8.1 MG/DL (8.5-10.1); Osmolality,Calculated 300.1 MOS/KG (273-304)
[2019-06-11] MEDS: PIPERACILLIN/TAZOBACTAM 3,375 MG in SODIUM CHLORIDE 0.9% 100 ML IV SCH ×3 (06:29→20:27)
[2019-06-11] MEDS: POTASSIUM CHLORIDE RIDER 20 MEQ in PREMIX 1 EACH IV PRN (06:42)
[2019-06-11] MEDS: ASPIRIN 325 MG TABLET PEG SCH (08:39)
[2019-06-11] MEDS: LACOSAMIDE 50 MG TABLET PEG SCH ×2 (08:39→20:27)
[2019-06-11] MEDS: PHENYTOIN 100 MG/4 ML UDCUP PER TUBE SCH ×2 (08:39→20:25)
[2019-06-11] MEDS: DOCUSATE/SENNA 50-8.6 MG TABLET PO SCH ×2 (08:39→20:28)
[2019-06-11] MEDS: MEMANTINE 10 MG TABLET PER TUBE SCH ×2 (08:39→20:27)
[2019-06-11] MEDS: METOCLOPRAMIDE 10 MG/10 ML UDCUP PEG SCH (08:39)
[2019-06-11] MEDS: MULTIVITAMIN LIQUID (CENTRUM) 60 ML BOTTLE PEG SCH (08:40)
[2019-06-11] MEDS: levETIRAcetam LIQUID 100 MG/ML 30 ML/BOTTLE PEG SCH ×3 (08:40→20:26)
[2019-06-11] MEDS: VANCOMYCIN INJ 1,000 MG in SODIUM CHLORIDE 0.9% 250 ML IV SCH (08:56)
[2019-06-11] MEDS: MOISTURIZING CREAM (EUCERIN) 106 GM JAR TOP SCH (11:13)
[2019-06-11] MEDS: BRIMONIDINE/TIMOLOL OPH SOLN 5 ML BOTTLE BOTH EYES SCH ×2 (11:13→18:04)
[2019-06-11] MEDS: ASCORBIC ACID 500 MG TABLET PEG SCH ×2 (11:28→20:27)
[2019-06-11] MEDS: METOCLOPRAMIDE 10 MG/2 ML VIAL IV SCH ×2 (13:26→18:35)
[2019-06-11] MEDS: POTASSIUM CHLORIDE RIDER 10 MEQ in PREMIX 1 EACH IV PRN (13:27)
[2019-06-11] MEDS ORDERED: PIPERACILLIN/TAZOBACTAM 4,500 MG in SODIUM CHLORIDE 0.9% 100 ML IV SCH ×2 (16:30→20:30)
[2019-06-11] MEDS: ENOXAPARIN 30 MG/0.3 ML SYRINGE SUBCUT SCH (20:25)
[2019-06-11] MEDS: DONEPEZIL 10 MG TABLET PEG SCH (20:27)
[2019-06-11] MEDS: TRAVOPROST 0.004% OPH SOLN 2.5 ML BOTTLE BOTH EYES SCH (20:28)
[2019-06-11] MEDS: DEXTROSE 5% 1,000 ML IV SCH (20:44)
[2019-06-11] MEDS: PANTOPRAZOLE 40 MG VIAL IV SCH (21:10)
[2019-06-12] MEDS: METOCLOPRAMIDE 10 MG/2 ML VIAL IV SCH ×4 (00:40→18:21)
[2019-06-12] MEDS: INSULIN REGULAR 100 UNIT/ML SUBCUT SCH ×4 (00:42→17:25)
[2019-06-12] MEDS: VANCOMYCIN INJ 1,000 MG in SODIUM CHLORIDE 0.9% 250 ML IV SCH ×2 (03:15→22:09)
[2019-06-12 04:10] LABS: Basophils % 0.3 % (0.0-0.8); Eosinophils # 0.1 10*3/uL (0.0-0.87); Eosinophils % 0.9 % (0.00-10.9); Hemoglobin 8.9 GM/DL (12.0-16.0); Immature Granulocytes % 2.7 %; Immature Granulocytes Absolute 0.27 #; Lymphocytes # 1.9 10*3/uL (1.4-4.0); Lymphocytes % 18.5 % (21.3-54.2); Mean Corpuscular HGB Conc 30.7 GM/DL (32-36); Mean Corpuscular Volume 94.8 FL (87-102); Mean Platelet Volume 11.9 FL (9.6-12.0); Monocytes % 7.3 % (1.7-12.7); NRBC # 0.15 10*3/uL; Neutrophils % 70.3 % (38.7-73.9); Platelet Count 134 T/CUMM (130-400); Red Blood Count 3.06 MC/CUMM (3.8-5.5); Red Cell Distribution Width 16.5 % (9.3-17.3); White Blood Count 10.1 T/CUMM (4-12)
[2019-06-12 04:24] LABS: Calcium 8.3 MG/DL (8.5-10.1); Osmolality,Calculated 282.1 MOS/KG (273-304)
[2019-06-12] MEDS: PIPERACILLIN/TAZOBACTAM 3,375 MG in SODIUM CHLORIDE 0.9% 100 ML IV SCH ×3 (04:32→22:09)
[2019-06-12] MEDS ORDERED: POTASSIUM CHLORIDE INJ 50 MEQ in SODIUM CHLORIDE 0.9% 475 ML IV ONE (05:00)
[2019-06-12 05:10] LABS: Allen Test Positive; Pt O2 Delivery Device Ventilator
[2019-06-12 05:11] LABS: ABG Base Excess 5.4 MMOL/L (-2.5-2.5); ABG HCO3 29.3 MMOL/L (20-26); ABG Oxygen Saturation 99.2 % (95-100); ABG PCO2 37.9 MM HG (35-48); ABG PH 7.492 (7.35-7.45); ABG TCO2 26.5 MMOL/L (23-27)
[2019-06-12] MEDS: DEXTROSE 5% 1,000 ML IV SCH ×3 (05:43→21:05)
[2019-06-12] MEDS: PHENYTOIN 100 MG/4 ML UDCUP PER TUBE SCH ×2 (09:04→22:09)
[2019-06-12] MEDS: MEMANTINE 10 MG TABLET PER TUBE SCH ×2 (09:04→22:09)
[2019-06-12] MEDS: LACOSAMIDE 50 MG TABLET PEG SCH ×2 (09:05→22:09)
[2019-06-12] MEDS: ASPIRIN 325 MG TABLET PEG SCH (09:05)
[2019-06-12] MEDS: levETIRAcetam LIQUID 100 MG/ML 30 ML/BOTTLE PEG SCH ×3 (09:06→22:09)
[2019-06-12] MEDS: MULTIVITAMIN LIQUID (CENTRUM) 60 ML BOTTLE PEG SCH (09:06)
[2019-06-12] MEDS: DOCUSATE/SENNA 50-8.6 MG TABLET PO SCH (09:41)
[2019-06-12] MEDS: MOISTURIZING CREAM (EUCERIN) 106 GM JAR TOP SCH (11:09)
[2019-06-12] MEDS: ASCORBIC ACID 500 MG TABLET PEG SCH ×2 (11:09→22:09)
[2019-06-12] MEDS: BRIMONIDINE/TIMOLOL OPH SOLN 5 ML BOTTLE BOTH EYES SCH ×2 (11:09→18:21)
[2019-06-12 13:26] LABS: Calcium 8.4 MG/DL (8.5-10.1); Osmolality,Calculated 285.8 MOS/KG (273-304)
[2019-06-12] MEDS: POTASSIUM CHLORIDE RIDER 20 MEQ in PREMIX 1 EACH IV PRN ×2 (15:35→17:59)
[2019-06-12] MEDS: MAGNESIUM SULF RIDER 2 GM in PREMIX 1 EACH IV PRN (21:05)
[2019-06-12] MEDS ORDERED: POLYETHYLENE GLYCOL POWDER 17 GM PACK PEG PRN (21:07)
[2019-06-12] MEDS: ENOXAPARIN 30 MG/0.3 ML SYRINGE SUBCUT SCH (22:08)
[2019-06-12] MEDS: TRAVOPROST 0.004% OPH SOLN 2.5 ML BOTTLE BOTH EYES SCH (22:09)
[2019-06-12] MEDS: DONEPEZIL 10 MG TABLET PEG SCH (22:09)
[2019-06-12] MEDS: PANTOPRAZOLE 40 MG VIAL IV SCH (22:10)
[2019-06-13] MEDS: POTASSIUM CHLORIDE RIDER 20 MEQ in PREMIX 1 EACH IV PRN ×2 (00:30→06:18)
[2019-06-13] MEDS: INSULIN REGULAR 100 UNIT/ML SUBCUT SCH ×4 (00:56→19:18)
[2019-06-13] MEDS: DEXTROSE 5% 1,000 ML IV SCH ×3 (00:56→13:42)
[2019-06-13] MEDS: METOCLOPRAMIDE 10 MG/2 ML VIAL IV SCH ×4 (01:27→19:18)
[2019-06-13 04:30] LABS: ABG Base Excess -0.1 MMOL/L (-2.5-2.5); ABG Oxygen Saturation 98.4 % (95-100); ABG PCO2 36.7 MM HG (35-48); ABG PH 7.433 (7.35-7.45); ABG PO2 120.9 MM HG (80-95); ABG TCO2 25.1 MMOL/L (23-27); Allen Test Positive; Pt O2 Delivery Device Ventilator
[2019-06-13] MEDS: PIPERACILLIN/TAZOBACTAM 3,375 MG in SODIUM CHLORIDE 0.9% 100 ML IV SCH (04:40)
[2019-06-13 04:55] LABS: Basophils % 0.5 % (0.0-0.8); Eosinophils # 0.1 10*3/uL (0.0-0.87); Eosinophils % 0.7 % (0.00-10.9); Hemoglobin 8.6 GM/DL (12.0-16.0); Immature Granulocytes % 7.1 %; Immature Granulocytes Absolute 0.53 #; Lymphocytes # 1.4 10*3/uL (1.4-4.0); Lymphocytes % 18.5 % (21.3-54.2); Mean Corpuscular HGB Conc 30.7 GM/DL (32-36); Mean Corpuscular Volume 96.6 FL (87-102); Mean Platelet Volume 12.4 FL (9.6-12.0); Monocytes % 7.8 % (1.7-12.7); NRBC # 0.07 10*3/uL; Neutrophils % 65.4 % (38.7-73.9); Platelet Count 187 T/CUMM (130-400); Red Cell Distribution Width 16.7 % (9.3-17.3); White Blood Count 7.4 T/CUMM (4-12)
[2019-06-13 05:15] LABS: Prealbumin 13.7 MG/DL (20-40)
[2019-06-13 05:18] LABS: Band Neutrophils 1 % (0-10); Eosinophils 1 % (0-10); Lymphocytes 19 % (20-55); Nucleated Red Blood Cells 1 (0-5); Platelet Estimate Adequate; Segmented Neutrophils 71 % (50-85); Total Cells Counted 100
[2019-06-13 05:19] LABS: Hypochromasia 1+
[2019-06-13 05:20] LABS: Calcium 8.3 MG/DL (8.5-10.1); Osmolality,Calculated 288.7 MOS/KG (273-304)
[2019-06-13] MEDS: ASPIRIN 325 MG TABLET PEG SCH (10:07)
[2019-06-13] MEDS: LACOSAMIDE 50 MG TABLET PEG SCH ×2 (10:08→21:00)
[2019-06-13] MEDS: MEMANTINE 10 MG TABLET PER TUBE SCH ×2 (10:08→21:00)
[2019-06-13] MEDS: ASCORBIC ACID 500 MG TABLET PEG SCH ×2 (10:08→21:00)
[2019-06-13] MEDS: PHENYTOIN 100 MG/4 ML UDCUP PER TUBE SCH ×2 (10:08→21:00)
[2019-06-13] MEDS: levETIRAcetam LIQUID 100 MG/ML 30 ML/BOTTLE PEG SCH ×3 (10:11→21:00)
[2019-06-13] MEDS: MOISTURIZING CREAM (EUCERIN) 106 GM JAR TOP SCH (10:12)
[2019-06-13] MEDS: BRIMONIDINE/TIMOLOL OPH SOLN 5 ML BOTTLE BOTH EYES SCH ×2 (10:12→19:18)
[2019-06-13] MEDS: MULTIVITAMIN LIQUID (CENTRUM) 60 ML BOTTLE PEG SCH (10:12)
[2019-06-13] MEDS: SCOPOLAMINE 1.5 MG PATCH TRANSDERM SCH (12:17)
[2019-06-13] MEDS: BUDESONIDE 0.5 MG/2 ML NEB RESP TX SCH ×2 (13:32→19:31)
[2019-06-13] MEDS: ERTAPENEM 1,000 MG in SODIUM CHLORIDE 0.9% 100 ML IV SCH (14:01)
[2019-06-13] MEDS: ALBUTEROL/IPRATROPIUM 3 ML NEB RESP TX SCH ×3 (14:40→23:05)
[2019-06-13] MEDS: VANCOMYCIN INJ 1,000 MG in SODIUM CHLORIDE 0.9% 250 ML IV SCH (15:29)
[2019-06-13] MEDS: DONEPEZIL 10 MG TABLET PEG SCH (21:00)
[2019-06-13] MEDS: TRAVOPROST 0.004% OPH SOLN 2.5 ML BOTTLE BOTH EYES SCH (21:00)
[2019-06-13] MEDS: ENOXAPARIN 30 MG/0.3 ML SYRINGE SUBCUT SCH (21:30)
[2019-06-13] MEDS: PANTOPRAZOLE 40 MG VIAL IV SCH (21:30)
[2019-06-14] MEDS: METOCLOPRAMIDE 10 MG/2 ML VIAL IV SCH ×4 (01:18→19:26)
[2019-06-14] MEDS: INSULIN REGULAR 100 UNIT/ML SUBCUT SCH ×5 (01:18→23:44)
[2019-06-14] MEDS: DEXTROSE 5% 1,000 ML IV SCH ×3 (01:19→15:30)
[2019-06-14] MEDS: ALBUTEROL/IPRATROPIUM 3 ML NEB RESP TX SCH ×6 (03:05→23:29)
[2019-06-14 03:19] LABS: ABG Base Excess 1.1 MMOL/L (-2.5-2.5); ABG HCO3 25.4 MMOL/L (20-26); ABG Oxygen Saturation 98.4 % (95-100); ABG PH 7.401 (7.35-7.45); ABG TCO2 22.5 MMOL/L (23-27); Allen Test Positive; Pt O2 Delivery Device Ventilator
[2019-06-14 06:31] LABS: Basophils # 0.1 10*3/uL (0.0-0.2); Basophils % 0.7 % (0.0-0.8); Eosinophils # 0.1 10*3/uL (0.0-0.87); Hematocrit 28.5 VOL% (35.7-47.0); Hemoglobin 8.6 GM/DL (12.0-16.0); Immature Granulocytes % 7.9 %; Immature Granulocytes Absolute 0.55 #; Lymphocytes # 1.4 10*3/uL (1.4-4.0); Lymphocytes % 20.1 % (21.3-54.2); Mean Corpuscular HGB Conc 30.2 GM/DL (32-36); Mean Corpuscular Volume 97.3 FL (87-102); Mean Platelet Volume 12.1 FL (9.6-12.0); Monocytes % 9.1 % (1.7-12.7); NRBC # 0.06 10*3/uL; Neutrophils % 61.2 % (38.7-73.9); Platelet Count 256 T/CUMM (130-400); Red Blood Count 2.93 MC/CUMM (3.8-5.5); Red Cell Distribution Width 16.8 % (9.3-17.3); White Blood Count 6.9 T/CUMM (4-12)
[2019-06-14 07:01] LABS: Hypochromasia 1+; Lymphocytes 27 % (20-55); Ovalocytes Slight; Platelet Estimate Adequate; Segmented Neutrophils 65 % (50-85); Total Cells Counted 100
[2019-06-14] MEDS: BUDESONIDE 0.5 MG/2 ML NEB RESP TX SCH ×2 (08:20→19:57)
[2019-06-14] MEDS: PHENYTOIN 100 MG/4 ML UDCUP PER TUBE SCH ×2 (09:54→20:39)
[2019-06-14] MEDS: ASPIRIN 325 MG TABLET PEG SCH (09:56)
[2019-06-14] MEDS: MULTIVITAMIN LIQUID (CENTRUM) 60 ML BOTTLE PEG SCH (09:56)
[2019-06-14] MEDS: MOISTURIZING CREAM (EUCERIN) 106 GM JAR TOP SCH (09:57)
[2019-06-14] MEDS: MEMANTINE 10 MG TABLET PER TUBE SCH ×2 (09:57→20:39)
[2019-06-14] MEDS: BRIMONIDINE/TIMOLOL OPH SOLN 5 ML BOTTLE BOTH EYES SCH ×2 (09:57→20:38)
[2019-06-14] MEDS: ASCORBIC ACID 500 MG TABLET PEG SCH ×2 (09:57→20:39)
[2019-06-14] MEDS: LACOSAMIDE 50 MG TABLET PEG SCH ×2 (09:57→20:39)
[2019-06-14] MEDS: levETIRAcetam LIQUID 100 MG/ML 30 ML/BOTTLE PEG SCH ×3 (10:30→20:39)
[2019-06-14] MEDS: ERTAPENEM 1,000 MG in SODIUM CHLORIDE 0.9% 100 ML IV SCH (13:00)
[2019-06-14] MEDS ORDERED: VANCOMYCIN INJ 1,000 MG in SODIUM CHLORIDE 0.9% 250 ML IV SCH (16:00)
[2019-06-14] MEDS: DONEPEZIL 10 MG TABLET PEG SCH (20:39)
[2019-06-14] MEDS: ENOXAPARIN 30 MG/0.3 ML SYRINGE SUBCUT SCH (20:39)
[2019-06-14] MEDS: TRAVOPROST 0.004% OPH SOLN 2.5 ML BOTTLE BOTH EYES SCH (20:40)
[2019-06-14] MEDS: PANTOPRAZOLE 40 MG VIAL IV SCH (21:23)
[2019-06-15] MEDS: METOCLOPRAMIDE 10 MG/2 ML VIAL IV SCH ×4 (01:46→17:37)
[2019-06-15] MEDS: ALBUTEROL/IPRATROPIUM 3 ML NEB RESP TX SCH ×5 (03:06→20:44)
[2019-06-15 04:26] LABS: ABG Base Excess 3.4 MMOL/L (-2.5-2.5); ABG HCO3 27.4 MMOL/L (20-26); ABG Oxygen Saturation 89.9 % (95-100); ABG PCO2 45.2 MM HG (35-48); ABG PH 7.408 (7.35-7.45); ABG PO2 54.9 MM HG (80-95); ABG TCO2 26.6 MMOL/L (23-27); Allen Test Positive; Pt O2 Delivery Device Ventilator
[2019-06-15] MEDS: DEXTROSE 5% 1,000 ML IV SCH ×3 (04:59→18:40)
[2019-06-15 05:02] LABS: Basophils % 0.4 % (0.0-0.8); Eosinophils # 0.1 10*3/uL (0.0-0.87); Eosinophils % 0.7 % (0.00-10.9); Hematocrit 26.1 VOL% (35.7-47.0); Hemoglobin 7.9 GM/DL (12.0-16.0); Immature Granulocytes % 7.3 %; Immature Granulocytes Absolute 0.52 #; Lymphocytes # 1.4 10*3/uL (1.4-4.0); Lymphocytes % 20.1 % (21.3-54.2); Mean Corpuscular HGB Conc 30.3 GM/DL (32-36); Mean Corpuscular Volume 98.5 FL (87-102); Mean Platelet Volume 11.3 FL (9.6-12.0); Monocytes % 7.9 % (1.7-12.7); NRBC # 0.04 10*3/uL; Neutrophils % 63.6 % (38.7-73.9); Platelet Count 272 T/CUMM (130-400); Red Blood Count 2.65 MC/CUMM (3.8-5.5); Red Cell Distribution Width 17.2 % (9.3-17.3); White Blood Count 7.2 T/CUMM (4-12)
[2019-06-15 05:31] LABS: Calcium 8.2 MG/DL (8.5-10.1); Osmolality,Calculated 290.7 MOS/KG (273-304)
[2019-06-15] MEDS: INSULIN REGULAR 100 UNIT/ML SUBCUT SCH ×3 (05:58→17:38)
[2019-06-15] MEDS: POTASSIUM CHLORIDE RIDER 20 MEQ in PREMIX 1 EACH IV PRN (06:28)
[2019-06-15 06:40] LABS: Band Neutrophils 5 % (0-10); Eosinophils 1 % (0-10); Hypochromasia 1+; Lymphocytes 23 % (20-55); Myelocytes 1 %; Platelet Estimate Adequate; Segmented Neutrophils 60 % (50-85); Total Cells Counted 100
[2019-06-15] MEDS: BUDESONIDE 0.5 MG/2 ML NEB RESP TX SCH ×2 (07:43→20:44)
[2019-06-15] MEDS: POTASSIUM CHLORIDE RIDER 10 MEQ in PREMIX 1 EACH IV PRN (08:25)
[2019-06-15] MEDS: ASPIRIN 325 MG TABLET PEG SCH (08:26)
[2019-06-15] MEDS: LACOSAMIDE 50 MG TABLET PEG SCH ×2 (08:26→21:52)
[2019-06-15] MEDS: MEMANTINE 10 MG TABLET PER TUBE SCH ×2 (08:26→21:52)
[2019-06-15] MEDS: levETIRAcetam LIQUID 100 MG/ML 30 ML/BOTTLE PEG SCH ×3 (08:27→20:20)
[2019-06-15] MEDS: PHENYTOIN 100 MG/4 ML UDCUP PER TUBE SCH ×2 (08:27→21:10)
[2019-06-15] MEDS: MULTIVITAMIN LIQUID (CENTRUM) 60 ML BOTTLE PEG SCH (08:28)
[2019-06-15] MEDS: MORPHINE 4 MG/1 ML VIAL IV PRN ×3 (10:10→18:26)
[2019-06-15] MEDS: ASCORBIC ACID 500 MG TABLET PEG SCH ×2 (10:12→21:52)
[2019-06-15] MEDS: MOISTURIZING CREAM (EUCERIN) 106 GM JAR TOP SCH (10:13)
[2019-06-15] MEDS: BRIMONIDINE/TIMOLOL OPH SOLN 5 ML BOTTLE BOTH EYES SCH ×2 (10:13→18:27)
[2019-06-15] MEDS: ERTAPENEM 1,000 MG in SODIUM CHLORIDE 0.9% 100 ML IV SCH (11:40)
[2019-06-15 17:51] LABS: Apearance,Urine CLOUDY (Clear); Bilirubin,Urine Negative (Negative); Blood, Urine Small mg/dL (Negative); Calcium Oxalate Crystals,Urine Moderate /HPF (Few); Glucose,Urine (UA) Negative (Negative); Ketones,Urine Negative (Negative); Nitrite,Urine Negative (Negative); Protein,Urine Negative; RBC,Urine 31 /HPF (0-4); Squamous Epithelial Cell,Urine Occasional /HPF (0-10); Urine Color Yellow (Yellow); Urine Specific Gravity 1.005 (1.001-1.035); Urine Urobilinogen < 2.0 EU/DL (0.2-1.0); WBC,Urine 110 /HPF (0-6)
[2019-06-15] MEDS: ENOXAPARIN 40 MG/0.4 ML SYRINGE SUBCUT SCH (18:39)
[2019-06-15] MEDS: PANTOPRAZOLE 40 MG VIAL IV SCH (21:51)
[2019-06-15] MEDS: DONEPEZIL 10 MG TABLET PEG SCH (21:52)
[2019-06-15] MEDS: TRAVOPROST 0.004% OPH SOLN 2.5 ML BOTTLE BOTH EYES SCH (21:53)
[2019-06-16] MEDS: METOCLOPRAMIDE 10 MG/2 ML VIAL IV SCH ×4 (01:17→18:14)
[2019-06-16] MEDS: ALBUTEROL/IPRATROPIUM 3 ML NEB RESP TX SCH ×6 (01:43→20:46)
[2019-06-16] MEDS: INSULIN REGULAR 100 UNIT/ML SUBCUT SCH ×4 (01:46→18:13)
[2019-06-16 04:32] LABS: ABG Base Excess 3.6 MMOL/L (-2.5-2.5); ABG HCO3 27.7 MMOL/L (20-26); ABG PCO2 30.7 MM HG (35-48); ABG PH 7.537 (7.35-7.45); ABG TCO2 24.4 MMOL/L (23-27); Allen Test Positive; Pt O2 Delivery Device Ventilator
[2019-06-16 05:35] LABS: Basophils % 0.5 % (0.0-0.8); Eosinophils % 0.5 % (0.00-10.9); Hematocrit 27.4 VOL% (35.7-47.0); Hemoglobin 8.1 GM/DL (12.0-16.0); Immature Granulocytes % 7.2 %; Immature Granulocytes Absolute 0.54 #; Lymphocytes # 1.5 10*3/uL (1.4-4.0); Lymphocytes % 20.1 % (21.3-54.2); Mean Corpuscular HGB Conc 29.6 GM/DL (32-36); Mean Corpuscular Volume 99.3 FL (87-102); Mean Platelet Volume 11.4 FL (9.6-12.0); Monocytes % 6.5 % (1.7-12.7); NRBC # 0.05 10*3/uL; Neutrophils % 65.2 % (38.7-73.9); Platelet Count 315 T/CUMM (130-400); Red Blood Count 2.76 MC/CUMM (3.8-5.5); Red Cell Distribution Width 17.6 % (9.3-17.3); White Blood Count 7.5 T/CUMM (4-12)
[2019-06-16 05:49] LABS: Calcium 8.2 MG/DL (8.5-10.1); Osmolality,Calculated 292.1 MOS/KG (273-304)
[2019-06-16 05:54] LABS: Prealbumin 15.7 MG/DL (20-40)
[2019-06-16 06:15] LABS: Band Neutrophils 5 % (0-10); Eosinophils 1 % (0-10); Hypochromasia 1+; Lymphocytes 30 % (20-55); Myelocytes 1 %; Nucleated Red Blood Cells 2 (0-5); Platelet Estimate Adequate; Segmented Neutrophils 57 % (50-85); Total Cells Counted 100
[2019-06-16] MEDS: POTASSIUM CHLORIDE RIDER 20 MEQ in PREMIX 1 EACH IV PRN (06:16)
[2019-06-16] MEDS: MORPHINE 4 MG/1 ML VIAL IV PRN ×4 (07:38→18:14)
[2019-06-16] MEDS: BUDESONIDE 0.5 MG/2 ML NEB RESP TX SCH ×2 (07:42→20:46)
[2019-06-16] MEDS: PHENYTOIN 100 MG/4 ML UDCUP PER TUBE SCH ×2 (08:15→20:17)
[2019-06-16] MEDS: MULTIVITAMIN LIQUID (CENTRUM) 60 ML BOTTLE PEG SCH (08:15)
[2019-06-16] MEDS: levETIRAcetam LIQUID 100 MG/ML 30 ML/BOTTLE PEG SCH ×3 (08:15→20:17)
[2019-06-16] MEDS: SCOPOLAMINE 1.5 MG PATCH TRANSDERM SCH (08:16)
[2019-06-16] MEDS: MEMANTINE 10 MG TABLET PER TUBE SCH ×2 (08:17→20:17)
[2019-06-16] MEDS: LACOSAMIDE 50 MG TABLET PEG SCH ×2 (08:17→20:17)
[2019-06-16] MEDS: ASPIRIN 325 MG TABLET PEG SCH (08:17)
[2019-06-16] MEDS: DEXTROSE 5% 1,000 ML IV SCH (08:34)
[2019-06-16] MEDS: ASCORBIC ACID 500 MG TABLET PEG SCH ×2 (10:12→20:17)
[2019-06-16] MEDS: MOISTURIZING CREAM (EUCERIN) 106 GM JAR TOP SCH (10:13)
[2019-06-16] MEDS: BRIMONIDINE/TIMOLOL OPH SOLN 5 ML BOTTLE BOTH EYES SCH ×2 (10:13→18:16)
[2019-06-16] MEDS: ERTAPENEM 1,000 MG in SODIUM CHLORIDE 0.9% 100 ML IV SCH (11:32)
[2019-06-16] MEDS ORDERED: BENZONATATE 100 MG CAPSULE PO PRN (12:41)
[2019-06-16 13:18] LABS: ABG Base Excess 4.3 MMOL/L (-2.5-2.5); ABG HCO3 28.3 MMOL/L (20-26); ABG Oxygen Saturation 97.3 % (95-100); ABG PCO2 47.3 MM HG (35-48); ABG PH 7.406 (7.35-7.45); ABG PO2 85.5 MM HG (80-95); ABG TCO2 27.2 MMOL/L (23-27); Allen Test Positive; Pt O2 Delivery Device Ventilator
[2019-06-16] MEDS: methylPREDNISolone SOD SUC 125 MG/2 ML VIAL IV SCH (13:23)
[2019-06-16] MEDS: TRAVOPROST 0.004% OPH SOLN 2.5 ML BOTTLE BOTH EYES SCH (20:17)
[2019-06-16] MEDS: DONEPEZIL 10 MG TABLET PEG SCH (20:17)
[2019-06-16] MEDS: ENOXAPARIN 40 MG/0.4 ML SYRINGE SUBCUT SCH (20:17)
[2019-06-16] MEDS: PANTOPRAZOLE 40 MG VIAL IV SCH (23:05)
[2019-06-17] MEDS: ALBUTEROL/IPRATROPIUM 3 ML NEB RESP TX SCH ×5 (00:30→20:15)
[2019-06-17] MEDS: METOCLOPRAMIDE 10 MG/2 ML VIAL IV SCH ×4 (01:35→18:06)
[2019-06-17] MEDS: INSULIN REGULAR 100 UNIT/ML SUBCUT SCH ×4 (01:38→17:58)
[2019-06-17] MEDS: methylPREDNISolone SOD SUC 125 MG/2 ML VIAL IV SCH ×2 (01:39→12:55)
[2019-06-17] MEDS: PHENYTOIN 100 MG/4 ML UDCUP PER TUBE SCH ×2 (07:25→20:19)
[2019-06-17] MEDS: LACOSAMIDE 50 MG TABLET PEG SCH ×2 (07:25→20:20)
[2019-06-17] MEDS: ASPIRIN 325 MG TABLET PEG SCH (07:25)
[2019-06-17] MEDS: MORPHINE 4 MG/1 ML VIAL IV PRN ×4 (07:26→16:52)
[2019-06-17] MEDS: levETIRAcetam LIQUID 100 MG/ML 30 ML/BOTTLE PEG SCH ×3 (07:26→20:20)
[2019-06-17] MEDS: BUDESONIDE 0.5 MG/2 ML NEB RESP TX SCH ×2 (08:12→20:15)
[2019-06-17] MEDS: MULTIVITAMIN LIQUID (CENTRUM) 60 ML BOTTLE PEG SCH (08:43)
[2019-06-17] MEDS: MOISTURIZING CREAM (EUCERIN) 106 GM JAR TOP SCH (09:29)
[2019-06-17] MEDS: ASCORBIC ACID 500 MG TABLET PEG SCH ×2 (09:29→20:20)
[2019-06-17] MEDS: MEMANTINE 10 MG TABLET PER TUBE SCH ×2 (09:29→20:20)
[2019-06-17] MEDS: BRIMONIDINE/TIMOLOL OPH SOLN 5 ML BOTTLE BOTH EYES SCH ×2 (09:30→18:06)
[2019-06-17] MEDS: ERTAPENEM 1,000 MG in SODIUM CHLORIDE 0.9% 100 ML IV SCH (12:56)
[2019-06-17] MEDS: DONEPEZIL 10 MG TABLET PEG SCH (20:20)
[2019-06-17] MEDS: TRAVOPROST 0.004% OPH SOLN 2.5 ML BOTTLE BOTH EYES SCH (20:20)
[2019-06-17] MEDS: ENOXAPARIN 40 MG/0.4 ML SYRINGE SUBCUT SCH (20:22)
[2019-06-17] MEDS: PANTOPRAZOLE 40 MG VIAL IV SCH (22:07)
[2019-06-18] MEDS: INSULIN REGULAR 100 UNIT/ML SUBCUT SCH ×4 (00:04→17:42)
[2019-06-18] MEDS: METOCLOPRAMIDE 10 MG/2 ML VIAL IV SCH ×4 (00:10→17:45)
[2019-06-18] MEDS: ALBUTEROL/IPRATROPIUM 3 ML NEB RESP TX SCH ×7 (00:25→23:30)
[2019-06-18] MEDS: methylPREDNISolone SOD SUC 125 MG/2 ML VIAL IV SCH ×2 (01:21→13:12)
[2019-06-18 03:39] LABS: Allen Test Positive; Pt O2 Delivery Device Ventilator
[2019-06-18 03:40] LABS: ABG Base Excess 3.2 MMOL/L (-2.5-2.5); ABG HCO3 27.3 MMOL/L (20-26); ABG PCO2 38.8 MM HG (35-48); ABG PH 7.454 (7.35-7.45); ABG PO2 92.8 MM HG (80-95); ABG TCO2 25.1 MMOL/L (23-27)
[2019-06-18 05:00] LABS: Basophils % 0.4 % (0.0-0.8); Eosinophils % 0.1 % (0.00-10.9); Hematocrit 29.5 VOL% (35.7-47.0); Hemoglobin 8.8 GM/DL (12.0-16.0); Immature Granulocytes % 3.7 %; Immature Granulocytes Absolute 0.41 #; Lymphocytes # 1.1 10*3/uL (1.4-4.0); Lymphocytes % 9.9 % (21.3-54.2); Mean Corpuscular HGB Conc 29.8 GM/DL (32-36); Mean Corpuscular Volume 99.3 FL (87-102); Mean Platelet Volume 10.7 FL (9.6-12.0); Monocytes % 3.4 % (1.7-12.7); Neutrophils % 82.5 % (38.7-73.9); Platelet Count 401 T/CUMM (130-400); Red Blood Count 2.97 MC/CUMM (3.8-5.5); Red Cell Distribution Width 17.6 % (9.3-17.3); White Blood Count 11.2 T/CUMM (4-12)
[2019-06-18 05:19] LABS: Calcium 8.7 MG/DL (8.5-10.1); Osmolality,Calculated 293.7 MOS/KG (273-304)
[2019-06-18] MEDS: POTASSIUM CHLORIDE RIDER 20 MEQ in PREMIX 1 EACH IV PRN (05:45)
[2019-06-18] MEDS: PHENYTOIN 100 MG/4 ML UDCUP PER TUBE SCH ×2 (07:06→21:40)
[2019-06-18] MEDS: LACOSAMIDE 50 MG TABLET PEG SCH ×2 (07:06→21:41)
[2019-06-18] MEDS: ASPIRIN 325 MG TABLET PEG SCH (07:06)
[2019-06-18] MEDS: levETIRAcetam LIQUID 100 MG/ML 30 ML/BOTTLE PEG SCH ×3 (07:06→21:41)
[2019-06-18] MEDS: MULTIVITAMIN LIQUID (CENTRUM) 60 ML BOTTLE PEG SCH (07:06)
[2019-06-18] MEDS: MORPHINE 4 MG/1 ML VIAL IV PRN ×5 (07:07→19:30)
[2019-06-18] MEDS: BUDESONIDE 0.5 MG/2 ML NEB RESP TX SCH ×2 (08:25→19:15)
[2019-06-18] MEDS: ASCORBIC ACID 500 MG TABLET PEG SCH ×2 (09:10→21:41)
[2019-06-18] MEDS: MOISTURIZING CREAM (EUCERIN) 106 GM JAR TOP SCH (09:11)
[2019-06-18] MEDS: BRIMONIDINE/TIMOLOL OPH SOLN 5 ML BOTTLE BOTH EYES SCH ×2 (09:11→19:03)
[2019-06-18] MEDS: MEMANTINE 10 MG TABLET PER TUBE SCH ×2 (09:11→21:41)
[2019-06-18] MEDS: ERTAPENEM 1,000 MG in SODIUM CHLORIDE 0.9% 100 ML IV SCH (11:43)
[2019-06-18] MEDS: ENOXAPARIN 40 MG/0.4 ML SYRINGE SUBCUT SCH (19:22)
[2019-06-18] MEDS: PANTOPRAZOLE 40 MG VIAL IV SCH (21:41)
[2019-06-18] MEDS: TRAVOPROST 0.004% OPH SOLN 2.5 ML BOTTLE BOTH EYES SCH (21:41)
[2019-06-18] MEDS: DONEPEZIL 10 MG TABLET PEG SCH (21:41)
[2019-06-19] MEDS: INSULIN REGULAR 100 UNIT/ML SUBCUT SCH ×4 (00:45→18:52)
[2019-06-19] MEDS: METOCLOPRAMIDE 10 MG/2 ML VIAL IV SCH ×4 (00:48→18:52)
[2019-06-19] MEDS: methylPREDNISolone SOD SUC 125 MG/2 ML VIAL IV SCH ×2 (00:53→12:11)
[2019-06-19] MEDS: ALBUTEROL/IPRATROPIUM 3 ML NEB RESP TX SCH ×6 (03:00→19:24)
[2019-06-19 04:06] LABS: Allen Test Positive; Pt O2 Delivery Device Ventilator
[2019-06-19 04:13] LABS: ABG Base Excess 1.2 MMOL/L (-2.5-2.5); ABG HCO3 25.9 MMOL/L (20-26); ABG Oxygen Saturation 98.9 % (95-100); ABG PCO2 41.3 MM HG (35-48); ABG PH 7.415 (7.35-7.45); ABG PO2 144.6 MM HG (80-95); ABG TCO2 27.2 MMOL/L (23-27)
[2019-06-19 05:30] LABS: Calcium 8.9 MG/DL (8.5-10.1); Osmolality,Calculated 297.6 MOS/KG (273-304)
[2019-06-19] MEDS: ASPIRIN 325 MG TABLET PEG SCH (07:16)
[2019-06-19] MEDS: MULTIVITAMIN LIQUID (CENTRUM) 60 ML BOTTLE PEG SCH (07:16)
[2019-06-19] MEDS: PHENYTOIN 100 MG/4 ML UDCUP PER TUBE SCH ×2 (07:16→20:16)
[2019-06-19] MEDS: LACOSAMIDE 50 MG TABLET PEG SCH ×2 (07:16→20:15)
[2019-06-19] MEDS: levETIRAcetam LIQUID 100 MG/ML 30 ML/BOTTLE PEG SCH ×3 (07:16→21:11)
[2019-06-19] MEDS: MORPHINE 4 MG/1 ML VIAL IV PRN ×4 (07:17→18:53)
[2019-06-19] MEDS: BUDESONIDE 0.5 MG/2 ML NEB RESP TX SCH ×2 (08:08→19:24)
[2019-06-19] MEDS: MEMANTINE 10 MG TABLET PER TUBE SCH ×2 (08:14→20:16)
[2019-06-19] MEDS: SCOPOLAMINE 1.5 MG PATCH TRANSDERM SCH (08:15)
[2019-06-19] MEDS: BRIMONIDINE/TIMOLOL OPH SOLN 5 ML BOTTLE BOTH EYES SCH ×2 (09:15→18:54)
[2019-06-19] MEDS: ASCORBIC ACID 500 MG TABLET PEG SCH ×2 (09:15→20:16)
[2019-06-19] MEDS: MOISTURIZING CREAM (EUCERIN) 106 GM JAR TOP SCH (09:15)
[2019-06-19] MEDS: ERTAPENEM 1,000 MG in SODIUM CHLORIDE 0.9% 100 ML IV SCH (12:11)
[2019-06-19] MEDS ORDERED: MORPHINE 4 MG/1 ML VIAL IV ONE (15:49)
[2019-06-19] MEDS: DONEPEZIL 10 MG TABLET PEG SCH (20:15)
[2019-06-19] MEDS: ENOXAPARIN 40 MG/0.4 ML SYRINGE SUBCUT SCH (20:16)
[2019-06-19] MEDS: TRAVOPROST 0.004% OPH SOLN 2.5 ML BOTTLE BOTH EYES SCH (20:17)
[2019-06-19] MEDS: PANTOPRAZOLE 40 MG VIAL IV SCH (21:12)
[2019-06-20] MEDS: INSULIN REGULAR 100 UNIT/ML SUBCUT SCH ×4 (00:07→17:26)
[2019-06-20] MEDS: methylPREDNISolone SOD SUC 125 MG/2 ML VIAL IV SCH ×2 (00:14→13:39)
[2019-06-20] MEDS: ALBUTEROL/IPRATROPIUM 3 ML NEB RESP TX SCH ×6 (00:15→23:25)
[2019-06-20] MEDS: METOCLOPRAMIDE 10 MG/2 ML VIAL IV SCH ×4 (00:16→17:26)
[2019-06-20 03:02] LABS: ABG Base Excess 1.8 MMOL/L (-2.5-2.5); ABG HCO3 25.8 MMOL/L (20-26); ABG Oxygen Saturation 97.1 % (95-100); ABG PCO2 37.9 MM HG (35-48); ABG PH 7.451 (7.35-7.45); ABG PO2 94.8 MM HG (80-95); Allen Test Positive; Pt O2 Delivery Device Ventilator
[2019-06-20 05:11] LABS: Prealbumin 26.2 MG/DL (20-40)
[2019-06-20] MEDS: MORPHINE 4 MG/1 ML VIAL IV PRN ×6 (07:05→21:32)
[2019-06-20] MEDS: LACOSAMIDE 50 MG TABLET PEG SCH ×2 (07:06→20:29)
[2019-06-20] MEDS: MULTIVITAMIN LIQUID (CENTRUM) 60 ML BOTTLE PEG SCH (07:06)
[2019-06-20] MEDS: ASPIRIN 325 MG TABLET PEG SCH (07:06)
[2019-06-20] MEDS: levETIRAcetam LIQUID 100 MG/ML 30 ML/BOTTLE PEG SCH ×3 (07:06→20:29)
[2019-06-20] MEDS: PHENYTOIN 100 MG/4 ML UDCUP PER TUBE SCH ×2 (07:06→20:28)
[2019-06-20] MEDS: BUDESONIDE 0.5 MG/2 ML NEB RESP TX SCH ×2 (08:04→19:25)
[2019-06-20] MEDS: MEMANTINE 10 MG TABLET PER TUBE SCH (08:38)
[2019-06-20] MEDS: ASCORBIC ACID 500 MG TABLET PEG SCH (10:28)
[2019-06-20] MEDS: BRIMONIDINE/TIMOLOL OPH SOLN 5 ML BOTTLE BOTH EYES SCH ×2 (10:29→19:10)
[2019-06-20] MEDS: MOISTURIZING CREAM (EUCERIN) 106 GM JAR TOP SCH (10:29)
[2019-06-20] MEDS: ERTAPENEM 1,000 MG in SODIUM CHLORIDE 0.9% 100 ML IV SCH (13:45)
[2019-06-20] MEDS ORDERED: MORPHINE 4 MG/1 ML VIAL IV ONE ×2 (15:57→16:14)
[2019-06-20] MEDS ORDERED: LORazepam 2 MG/1 ML VIAL ONE ×4 (16:05→19:14)
[2019-06-20] MEDS ORDERED: LORazepam 2 MG/1 ML VIAL IV ONE (16:15)
[2019-06-20] MEDS: LORazepam 2 MG/1 ML VIAL IV PRN ×4 (16:28→21:28)
[2019-06-20] MEDS: ENOXAPARIN 40 MG/0.4 ML SYRINGE SUBCUT SCH (20:29)
[2019-06-20] MEDS: TRAVOPROST 0.004% OPH SOLN 2.5 ML BOTTLE BOTH EYES SCH (21:28)
[2019-06-20] MEDS: PANTOPRAZOLE 40 MG VIAL IV SCH (22:43)
[2019-06-21] MEDS: LORazepam 2 MG/1 ML VIAL IV PRN ×2 (00:47→06:43)
[2019-06-21] MEDS: MORPHINE 4 MG/1 ML VIAL IV PRN ×2 (00:50→06:45)
[2019-06-21] MEDS: ALBUTEROL/IPRATROPIUM 3 ML NEB RESP TX SCH ×5 (03:30→20:53)
[2019-06-21] MEDS: LACOSAMIDE 50 MG TABLET PEG SCH ×2 (09:16→21:37)
[2019-06-21] MEDS: levETIRAcetam LIQUID 100 MG/ML 30 ML/BOTTLE PEG SCH ×3 (09:16→21:38)
[2019-06-21] MEDS: BRIMONIDINE/TIMOLOL OPH SOLN 5 ML BOTTLE BOTH EYES SCH ×2 (09:17→18:04)
[2019-06-21] MEDS: MOISTURIZING CREAM (EUCERIN) 106 GM JAR TOP SCH (09:17)
[2019-06-21] MEDS: PHENYTOIN 100 MG/4 ML UDCUP PER TUBE SCH ×2 (10:25→21:37)
[2019-06-21] MEDS: ENOXAPARIN 40 MG/0.4 ML SYRINGE SUBCUT SCH (21:32)
[2019-06-21] MEDS: PANTOPRAZOLE 40 MG VIAL IV SCH (21:33)
[2019-06-22] MEDS: ALBUTEROL/IPRATROPIUM 3 ML NEB RESP TX SCH ×7 (00:36→23:52)
[2019-06-22] MEDS: TRAVOPROST 0.004% OPH SOLN 2.5 ML BOTTLE BOTH EYES SCH ×2 (07:10→20:49)
[2019-06-22] MEDS: LACOSAMIDE 50 MG TABLET PEG SCH ×2 (10:52→20:49)
[2019-06-22] MEDS: SCOPOLAMINE 1.5 MG PATCH TRANSDERM SCH (10:52)
[2019-06-22] MEDS: PHENYTOIN 100 MG/4 ML UDCUP PER TUBE SCH ×2 (10:53→20:48)
[2019-06-22] MEDS: levETIRAcetam LIQUID 100 MG/ML 30 ML/BOTTLE PEG SCH ×3 (10:54→20:44)
[2019-06-22] MEDS: BRIMONIDINE/TIMOLOL OPH SOLN 5 ML BOTTLE BOTH EYES SCH ×2 (10:55→20:49)
[2019-06-22] MEDS: MOISTURIZING CREAM (EUCERIN) 106 GM JAR TOP SCH (10:55)
[2019-06-22] MEDS: PANTOPRAZOLE 40 MG VIAL IV SCH ×2 (20:48→21:04)
[2019-06-22] MEDS: ENOXAPARIN 40 MG/0.4 ML SYRINGE SUBCUT SCH (20:48)
[2019-06-23] MEDS: ALBUTEROL/IPRATROPIUM 3 ML NEB RESP TX SCH ×5 (03:49→19:40)
[2019-06-23] MEDS: LORazepam 2 MG/1 ML VIAL IV PRN (05:40)
[2019-06-23] MEDS: levETIRAcetam LIQUID 100 MG/ML 30 ML/BOTTLE PEG SCH ×3 (08:32→21:30)
[2019-06-23] MEDS: PHENYTOIN 100 MG/4 ML UDCUP PER TUBE SCH ×2 (08:33→21:29)
[2019-06-23] MEDS: LACOSAMIDE 50 MG TABLET PEG SCH ×2 (08:33→21:30)
[2019-06-23] MEDS: MORPHINE 4 MG/1 ML VIAL IV PRN (08:34)
[2019-06-23] MEDS: BRIMONIDINE/TIMOLOL OPH SOLN 5 ML BOTTLE BOTH EYES SCH ×2 (10:46→21:56)
[2019-06-23] MEDS: MOISTURIZING CREAM (EUCERIN) 106 GM JAR TOP SCH (10:46)
[2019-06-23] MEDS: PANTOPRAZOLE 40 MG VIAL IV SCH (21:28)
[2019-06-23] MEDS: ENOXAPARIN 40 MG/0.4 ML SYRINGE SUBCUT SCH (21:29)
[2019-06-23] MEDS: TRAVOPROST 0.004% OPH SOLN 2.5 ML BOTTLE BOTH EYES SCH (21:56)
[2019-06-24] MEDS: ALBUTEROL/IPRATROPIUM 3 ML NEB RESP TX SCH ×7 (00:17→23:51)
[2019-06-24] MEDS: levETIRAcetam LIQUID 100 MG/ML 30 ML/BOTTLE PEG SCH ×3 (08:52→21:05)
[2019-06-24] MEDS: LACOSAMIDE 50 MG TABLET PEG SCH ×2 (08:52→21:05)
[2019-06-24] MEDS: PHENYTOIN 100 MG/4 ML UDCUP PER TUBE SCH ×2 (08:52→21:04)
[2019-06-24] MEDS: MORPHINE 4 MG/1 ML VIAL IV PRN (12:55)
[2019-06-24] MEDS: BRIMONIDINE/TIMOLOL OPH SOLN 5 ML BOTTLE BOTH EYES SCH ×2 (12:58→21:07)
[2019-06-24] MEDS: MOISTURIZING CREAM (EUCERIN) 106 GM JAR TOP SCH (12:59)
[2019-06-24] MEDS ORDERED: ACETAMINOPHEN 325 MG/10.15 ML UDCUP PER TUBE ONE (20:13)
[2019-06-24] MEDS: ENOXAPARIN 40 MG/0.4 ML SYRINGE SUBCUT SCH (21:04)
[2019-06-24] MEDS: TRAVOPROST 0.004% OPH SOLN 2.5 ML BOTTLE BOTH EYES SCH (21:07)
[2019-06-24] MEDS: PANTOPRAZOLE 40 MG VIAL IV SCH (21:24)
[2019-06-25] MEDS: ALBUTEROL/IPRATROPIUM 3 ML NEB RESP TX SCH ×6 (03:33→23:38)
[2019-06-25] MEDS: PHENYTOIN 100 MG/4 ML UDCUP PER TUBE SCH ×2 (08:57→21:52)
[2019-06-25] MEDS: LACOSAMIDE 50 MG TABLET PEG SCH ×2 (08:57→21:53)
[2019-06-25] MEDS: levETIRAcetam LIQUID 100 MG/ML 30 ML/BOTTLE PEG SCH ×3 (08:58→21:53)
[2019-06-25] MEDS: SCOPOLAMINE 1.5 MG PATCH TRANSDERM SCH (08:58)
[2019-06-25] MEDS: BRIMONIDINE/TIMOLOL OPH SOLN 5 ML BOTTLE BOTH EYES SCH ×2 (09:15→18:25)
[2019-06-25] MEDS: MOISTURIZING CREAM (EUCERIN) 106 GM JAR TOP SCH (09:15)
[2019-06-25] MEDS: ENOXAPARIN 40 MG/0.4 ML SYRINGE SUBCUT SCH (21:52)
[2019-06-25] MEDS: TRAVOPROST 0.004% OPH SOLN 2.5 ML BOTTLE BOTH EYES SCH (21:53)
[2019-06-25] MEDS: PANTOPRAZOLE 40 MG VIAL IV SCH (21:54)
[2019-06-26] MEDS: ALBUTEROL/IPRATROPIUM 3 ML NEB RESP TX SCH ×5 (02:56→19:30)
[2019-06-26] MEDS: LACOSAMIDE 50 MG TABLET PEG SCH ×2 (08:41→20:14)
[2019-06-26] MEDS: PHENYTOIN 100 MG/4 ML UDCUP PER TUBE SCH ×2 (08:41→20:14)
[2019-06-26] MEDS: levETIRAcetam LIQUID 100 MG/ML 30 ML/BOTTLE PEG SCH ×3 (08:42→20:14)
[2019-06-26] MEDS: BRIMONIDINE/TIMOLOL OPH SOLN 5 ML BOTTLE BOTH EYES SCH ×2 (10:40→20:16)
[2019-06-26] MEDS: MOISTURIZING CREAM (EUCERIN) 106 GM JAR TOP SCH (10:40)
[2019-06-26] MEDS: ENOXAPARIN 40 MG/0.4 ML SYRINGE SUBCUT SCH (20:13)
[2019-06-26] MEDS: TRAVOPROST 0.004% OPH SOLN 2.5 ML BOTTLE BOTH EYES SCH (20:14)
[2019-06-26] MEDS: PANTOPRAZOLE 40 MG VIAL IV SCH (21:34)
[2019-06-27] MEDS: ALBUTEROL/IPRATROPIUM 3 ML NEB RESP TX SCH ×4 (00:14→11:00)
[2019-06-27] MEDS: LACOSAMIDE 50 MG TABLET PEG SCH (09:43)
[2019-06-27] MEDS: PHENYTOIN 100 MG/4 ML UDCUP PER TUBE SCH (09:44)
[2019-06-27] MEDS: levETIRAcetam LIQUID 100 MG/ML 30 ML/BOTTLE PEG SCH (09:44)
[2019-06-27] MEDS: BRIMONIDINE/TIMOLOL OPH SOLN 5 ML BOTTLE BOTH EYES SCH (09:46)
[2019-06-27] MEDS: MOISTURIZING CREAM (EUCERIN) 106 GM JAR TOP SCH (09:46)
[2019-06-27 12:29] VITALS: BP 109/67
== END 2019-06-27 12:56 | disposition hospice, home (50) | DRG 870 ==
LOC: EDUNIT# → EDBD → N.ED 19:51 → SUATTDRO 23:31 → SUPCPDRO 23:31 → N.EDINP 23:31 → N.ICU 23:59 → N.EDINP 06-08 00:15 → N.ICU 06-08 00:15 → N.5E 06-21 10:54
PROVIDERS: ADMIT Internal Medicine; ATTEND Hospitalist